=== PATIENT | female | born 1945 | race Asian ===

== ENCOUNTER 2016-12-18 11:16 | Inpatient (IN) | payer MEDICARE, MEDICAID ==
--- NOTE | 2016-12-18 12:11 | ED Physician Chart ---
ED Chief Complaint/HPI - Patient Information Date Seen:: 12/18/16 Time Seen:: 11:55 Chief Complaint:: SUICIDAL IDEATION. CONFUSION History of Present Illness:: THIS 71 YEAR OLD FEMALE WAS BROUGHT TO THE HOSPITAL BY EMS AND THE [employer] POLICE DUE TO CONFUSION AND SUICIDAL IDEATION. PT FOLLOWS SIMPLE COMMANDS ( IE. OPEN YOUR MOUTH, FOLLOW MY FLASHLIGHT) BUT IS ORIENTED ONLY TO HER NAME. SHE THOUGHT THAT THE YEAR IS 2002. WHEN SHE GOT HERE THE PATIENT WAS SPEAKING GIBERISH IN HER [place] LANGUAGE OF TAGALOG. SHE DENIES ANY FEVER OR CHILLS. SHE DENIES HEADACHE, CHEST PAIN OR ABDOMINAL PAIN. DENIES COUGH OR TROUBLE BREATHING. DENIES NAUSEA OR VOMITING. NO ABDOMINAL PAIN. HE PT HAS A HISTORY OF DIABETES AND CIRRHOSIS. ACCORDING TO THE PATIENTS SHE DRINKS ALCOHOL EXCESSIVELY. SHE WAS PLACED ON A 5150 BY [employer] FOR 'DANGER TO SELF.' Allergies:: Allergies Allergy/AdvReac Type Severity Reaction Status Date / Time No Known Allergies Allergy Verified 12/18/16 11:31 Vitals:: Vital Signs - 8 hr 12/18/16 11:31 Temp 96.7 F HR 101 RR 19 BP 164/80 O2 Sat % 98 ED Review of Systems - Review of Systems General/Constitutional: No fever, No chills, Edema Skin: No rash, No bruising Head: No headache Eyes: No loss of vision, No diplopia ENT: No earache, No nasal drainage, No sore throat Neck: No neck pain, No swelling, No stiffness, No mass noted Cardio Vascular: No chest pain, No palpitations, edema Pulmonary: No SOB, No cough, No wheezing GI: No nausea, No vomiting, No diarrhea, No pain G/U: No dysuria, No frequency, No hematuria Asparagus Buncher: No abnormal vaginal bleed Musculoskeletal: No bone or joint pain, No back pain, No muscle pain Psychiatric: Other (UN) Hematopoietic: No bruising Neurological: No syncope, No focal symptoms, No weakness, No paresthesia, No headache, Confusion, Other (PT STATES SHE HAS HAD A STROKE BUT CAN'T SAY WHEN) ED Past Medical History - Past Medical History Past Medical History: DM, Other (CIRRHOSIS) Social History: Non Smoker, Alcohol, 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 Head: Atraumatic Other Head comments:: NO PALPABLE OR VISIBLE HEAD INJURY. Eyes: Lids, conjuctiva normal, PERRL, EOMI Other Eyes comments:: SCLERA JAUNDICED. NO NYSTAGMUS. Skin: No rash, No ecchymosis, Well hydrated Other Skin comments:: ICTHEOSIS OF SKIN IN DISTAL LOWER EXTREMITIES. ENMT: External ears, nose nl, Oropharynx nl Other ENMT comments:: PT WITH MULTIPLE BROKEN AND DECAYING TEETH. Neck: Nontender, No JVD, No nuchal rigidity, No mass, No stridor Respiratory: Nl effort/Exclusion, Clear to Auscultation, No Wheeze/Rhonchi/Rales Cardio Vascular: RRR, No murmur, gallop, rubs, NL S1 S2 Other Cardio Vascular comments:: GOOD DISTAL PULSES ALL 4 EXTREMITIES. GI: No tenderness/rebounding/guarding, No organomegaly Other GI comments:: MODERATELY DISTENDED SECONDARY TO OBESITY. NORMAL BOWEL SOUNDS. UNABLE TO PALPATE LIVER OR SPLEEN. NO REBOUND OR GUARDING. NON-INCARCERATED UMBILICAL HERNIA. Other Extremities comments:: Patient has trace pretibial edema in both lower extremities. Normal strength in all 4 extremities. Sensation appears intact. ED Labs/Radiology/EKG Results - Lab Results Results: Laboratory Tests 12/18/16 11:27 POC Glucose 204 H EKG INTERPRETATION: Normal sinus rhythm at a rate of 91 with no ectopy. Normal WV interval. Normal QRS duration. Normal QT interval. Normal axis. Absent R waves in V1 suggestive of old anterior infarct. No ST segment elevation or depression. Nonspecific T-wave flattening in the lateral precordial leads. Impression: Abnormal EKG. Laboratory Tests 12/18/16 12/18/16 12/18/16 11:27 12:32 12:32 WBC 6.9 RBC 4.60 Hgb 13.6 Hct 39.6 L MCV 86.2 MCH 29.5 MCHC Differential 34.2 RDW 14.8 Plt Count 111 L MPV 10.6 Neutrophils % 67.6 Lymphocytes % 17.4 L Monocytes % 9.7 Eosinophils % 5.3 H Basophils % 0.0 Sodium 132 L Potassium 4.1 Chloride 99 Carbon Dioxide 24.0 Anion Gap 13.1 BUN 17 Creatinine 0.9 Est GFR ( Amer) TNP Est GFR (Non-Af Amer) TNP BUN/Creatinine Ratio 18.9 Glucose 240 H POC Glucose 204 H Calcium 9.7 Total Bilirubin 6.8 H AST 50 H ALT 27 Alkaline Phosphatase 85 Ammonia Total Protein 7.3 Albumin 3.4 L Globulin 3.9 Albumin/Globulin Ratio 0.9 L Amylase Lipase 12/18/16 12/18/16 12:32 12:32 WBC RBC Hgb Hct MCV MCH MCHC Differential RDW Plt Count MPV Neutrophils % Lymphocytes % Monocytes % Eosinophils % Basophils % Sodium Potassium Chloride Carbon Dioxide Anion Gap BUN Creatinine Est GFR ( Amer) Est GFR (Non-Af Amer) BUN/Creatinine Ratio Glucose POC Glucose Calcium Total Bilirubin AST ALT Alkaline Phosphatase Ammonia 107 H Total Protein Albumin Globulin Albumin/Globulin Ratio Amylase 33 Lipase 30 CBC shows no leukocytosis or anemia. Metabolic studies were positive for a mild hyponatremia with a sodium of 132. Other electrolytes were within normal parameters. Normal renal function. Both the amylase and lipase were within normal range. Patient has an elevated bilirubin and ammonia level of 107. There is abnormal liver function. Chest x-ray INTERPRETATION: Mild cardiomegaly. Prominent markings in both jeffery. No areas of pulmonary consolidation. No pneumothorax. No pleural effusion. IMPRESSION: NO ACUTE CARDIOPULMONARY FINDINGS. ED Assessment - Assessment General Assessment: CASE SUMMARY: 71-year-old female lives in a hotel with her . The called 911 because of confusion and saying that she wants to kill herself. He was put on a 5150 hold by [employer]) and brought to the emergency department. Upon arrival she was awake but speaking gibberish. There was no evidence of head trauma patient had abdominal distention which was most likely secondary to obesity. No ascites detected on examination. Patient has mild pretibial edema in both lower extremities. Laboratory studies showed a normal white count with no anemia. Renal function was normal. She had elevation of her ammonia level in the 110 range. She also had elevation of her bilirubin in the 7 range. I feel that the patient's confusion was most likely secondary to hepatic encephalopathy. The case was discussed with Dr. Lopez patient will be admitted to a medicine/surgical bed for further diagnostic evaluation and treatment. In the emergency department she received intravenous thiamine, folate and multivitamins. She became progressively more awake and alert during the ED course. The patient became extremely agitated as a cath UA was used to obtain a urine specimen. This was addressed with 0.5 mg of Ativan. Admitted in stable condition. MDM DDX FOR ALTERED MENTAL STATUS: NOT Hypoglycemia based on serum glucose in the 200 range. NOT Hyponatremia based on a serum of sodium of 132. NOT Ketoacidosis based on a serum Bicarb of 24. NOT Renal failure based on normal BUN and Creatinine levels. NOT intracranial bleed based on negative CT of the head. ED Septic Shock - . Is Septic Shock (SBP<90, OR Lactate>4 mmol\L) present?: No - <6hrs of presentation: Vital Signs: Vital Signs - 8 hr 12/18/16 11:31 Temp 96.7 F HR 101 RR 19 BP 164/80 O2 Sat % 98 ED Reassessment (Disposition) - Reassessment Reassessment Condition:: Improved - Diagnosis Diagnosis:: CIRRHOSIS with HEPATIC ENCEPHALOPATHY. MAJOR DEPRESSION with SUICIDAL IDEATION . - Patient Disposition Discharge/Transfer:: Acute Care w/in this hosp Accepting Physician:: DR. NETO KERR
[2016-12-18] MEDS ORDERED: Multivitamin Inj 10 ML, Thiamine HCL 100 MG, Magnesium Sulfate 2 GM, Folic Acid 1 MG in... IV ONE (12:20)
[2016-12-18] MEDS ORDERED: Sodium Chloride 0.9% 1,000 ML IV ONE (12:22)
[2016-12-18] MEDS ORDERED: Magnesium Sulfate 1 gm/2 mL 2mL Vial IV ONE (12:27)
[2016-12-18] MEDS ORDERED: Thiamine 100 mg/mL 2mL Vial ONE (12:27)
[2016-12-18] MEDS ORDERED: Multivitamin Inj 10 mL Vial IV ONE (12:28)
[2016-12-18 12:41] LABS: % EOSINOPHILS 5.3 % (0.0-5.0); % LYMPHOCYTES 17.4 % (20.0-50.0); % MONOCYTES 9.7 % (2.0-10.0); % NEUTROPHILS 67.6 % (40.0-80.0); HEMATOCRIT 39.6 % (41.0-60); HEMOGLOBIN 13.6 gm/dL (12-16); MEAN CELL VOLUME 86.2 fl (81-100); MEAN CORPUSCULAR HEMOGLOBIN 29.5 pg (27.0-31.0); MEAN CORPUSCULAR HGB CONC 34.2 pg (28.0-36.0); MEAN PLATELET VOLUME 10.6 fl; NEUTROPHILE ABSOLUTE 4.6 Th/cmm (1.8-8.0); PLATELET COUNT 111 Th/cmm (150-400); RED CELL DISTRIBUTION WIDTH 14.8 % (11.5-20.0); WHITE BLOOD COUNT 6.9 Th/cmm (4.8-10.8)
[2016-12-18 12:57] LABS: ALB/GLOB RATIO 0.9 (1.0-1.8); ALKALINE PHOSPHATASE 85 U/L (34-104); ANION GAP 13.1 (7.0-16.0); BILIRUBIN,TOTAL 6.8 mg/dL (0.3-1.0); BUN - UREA NITROGEN 17 mg/dL (7-25); BUN/CREATININE RATIO 18.9; CALCIUM SERUM 9.7 mg/dL (8.6-10.3); CHLORIDE 99 mEq/L (98-107); CREATININE - SERUM 0.9 mg/dL (0.6-1.2); GLUCOSE 240 mg/dL (70-105); POTASSIUM SERUM 4.1 mEq/L (3.5-5.1); SGOT 50 U/L (13-39); SGPT/ALT 27 U/L (7-52); SODIUM SERUM 132 mEq/L (136-145)
[2016-12-18 12:58] LABS: AMYLASE SERUM 33 U/L (29-103); LIPASE 30 U/L (11-82)
[2016-12-18] MEDS ORDERED: guaiFENesin 200 MG/10 ML UDC PO PRN (14:44)
[2016-12-18] MEDS ORDERED: D5-0.45NS 1,000 ML IV SCH (14:45)
[2016-12-18 15:12] LABS: URINE COLOR DARK ORANGE
[2016-12-18 15:13] LABS: URINE BILIRUBIN SMALL (NEGATIVE); URINE BLOOD TRACE (NEGATIVE); URINE GLUCOSE (UA) NEGATIVE (NEGATIVE); URINE KETONE TRACE mg/dL (NEGATIVE); URINE PH 5.5 (4.6 - 8.0); URINE PROTEIN 100 mg/dL (NEGATIVE)
[2016-12-18 15:14] LABS: URINE BACTERIA 1+ /hpf (NONE SEEN); URINE EPITHELIAL CELLS OCCASIONAL /lpf (FEW); URINE RBC 0-2 /hpf (0-5)
[2016-12-18 15:15] LABS: URINE AMORPHOUS SEDIMENT MANY URATES (NONE SEEN); URINE FINE GRANULAR CAST 0-2 /lpf (NONE SEEN)
[2016-12-18 15:27] LABS: AMPHETAMINE URINE NEGATIVE (NEGATIVE); BARBITURATES URINE NEGATIVE (NEGATIVE); METHADONE URINE NEGATIVE (NEGATIVE)
[2016-12-18] MEDS ORDERED: Albuterol Nebulizer 2.5mg/3mL HHN ONE (15:31)
[2016-12-18] MEDS ORDERED: Ipratropium Neb 0.5 mg/2.5 mL UD HHN ONE (15:31)
--- NOTE | 2016-12-18 16:19 | Internal Medicine Prog Note ---
Internal Medicine Subjective - Subjective Service Date: 12/18/16 ([id number] hn [id number]) Internal Medicine Objective - Results Result Diagrams: 12/18/16 12:32 12/18/16 12:32 Recent Labs: Laboratory Last Values WBC 6.9 Th/cmm (4.8-10.8) 12/18/16 12:32 RBC 4.60 Mil/cmm (3.80-5.20) 12/18/16 12:32 Hgb 13.6 gm/dL (12-16) 12/18/16 12:32 Hct 39.6 % (41.0-60) L 12/18/16 12:32 MCV 86.2 fl (81-100) 12/18/16 12:32 MCH 29.5 pg (27.0-31.0) 12/18/16 12:32 MCHC Differential 34.2 pg (28.0-36.0) 12/18/16 12:32 RDW 14.8 % (11.5-20.0) 12/18/16 12:32 Plt Count 111 Th/cmm (150-400) L 12/18/16 12:32 MPV 10.6 fl 12/18/16 12:32 Neutrophils % 67.6 % (40.0-80.0) 12/18/16 12:32 Lymphocytes % 17.4 % (20.0-50.0) L 12/18/16 12:32 Monocytes % 9.7 % (2.0-10.0) 12/18/16 12:32 Eosinophils % 5.3 % (0.0-5.0) H 12/18/16 12:32 Basophils % 0.0 % (0.0-2.0) 12/18/16 12:32 Sodium 132 mEq/L (136-145) L 12/18/16 12:32 Potassium 4.1 mEq/L (3.5-5.1) 12/18/16 12:32 Chloride 99 mEq/L (98-107) 12/18/16 12:32 Carbon Dioxide 24.0 mEq/L (21.0-31.0) 12/18/16 12:32 Anion Gap 13.1 (7.0-16.0) 12/18/16 12:32 BUN 17 mg/dL (7-25) 12/18/16 12:32 Creatinine 0.9 mg/dL (0.6-1.2) 12/18/16 12:32 Est GFR ( Amer) TNP 12/18/16 12:32 Est GFR (Non-Af Amer) TNP 12/18/16 12:32 BUN/Creatinine Ratio 18.9 12/18/16 12:32 Glucose 240 mg/dL (70-105) H 12/18/16 12:32 POC Glucose 204 MG/DL (70 - 105) H 12/18/16 11:27 Hemoglobin A1c % 7.5 % (4.0-6.0) H 12/18/16 13:59 Calcium 9.7 mg/dL (8.6-10.3) 12/18/16 12:32 Total Bilirubin 6.8 mg/dL (0.3-1.0) H 12/18/16 12:32 AST 50 U/L (13-39) H 12/18/16 12:32 ALT 27 U/L (7-52) 12/18/16 12:32 Alkaline Phosphatase 85 U/L (34-104) 12/18/16 12:32 Ammonia 107 umol/L (16-53) H 12/18/16 12:32 Total Protein 7.3 gm/dL (6.0-8.3) 12/18/16 12:32 Albumin 3.4 gm/dL (3.7-5.3) L 12/18/16 12:32 Globulin 3.9 gm/dL 12/18/16 12:32 Albumin/Globulin Ratio 0.9 (1.0-1.8) L 12/18/16 12:32 Amylase 33 U/L (29-103) 12/18/16 12:32 Lipase 30 U/L (11-82) 12/18/16 12:32 Urine Source RANDOM 12/18/16 14:50 Urine Color DARK ORANGE 12/18/16 14:50 Urine Clarity SLIGHTLY HAZY (CLEAR) 12/18/16 14:50 Urine pH 5.5 (4.6 - 8.0) 12/18/16 14:50 Ur Specific [place] >= 1.030 (1.005-1.030) 12/18/16 14:50 Urine Protein 100 mg/dL (NEGATIVE) H 12/18/16 14:50 Urine Glucose (UA) NEGATIVE mg/dL (NEGATIVE) 12/18/16 14:50 Urine Ketones TRACE mg/dL (NEGATIVE) 12/18/16 14:50 Urine Blood TRACE (NEGATIVE) 12/18/16 14:50 Urine Nitrate NEGATIVE (NEGATIVE) 12/18/16 14:50 Urine Bilirubin SMALL (NEGATIVE) H 12/18/16 14:50 Urine Urobilinogen 1.0 E.U./dL (0.2 - 1.0) 12/18/16 14:50 Ur Leukocyte Esterase NEGATIVE (NEGATIVE) 12/18/16 14:50 Urine RBC 0-2 /hpf (0-5) 12/18/16 14:50 Urine WBC 2-5 /hpf (0-5) 12/18/16 14:50 Ur Epithelial Cells OCCASIONAL /lpf (FEW) 12/18/16 14:50 Amorphous Sediment MANY URATES (NONE SEEN) 12/18/16 14:50 Urine Bacteria 1+ /hpf (NONE SEEN) H 12/18/16 14:50 Fine Granular Casts 0-2 /lpf (NONE SEEN) H 12/18/16 14:50 Urine Opiates Screen NEGATIVE (NEGATIVE) 12/18/16 14:50 Urine Methadone Screen NEGATIVE (NEGATIVE) 12/18/16 14:50 Ur Barbiturates Screen NEGATIVE (NEGATIVE) 12/18/16 14:50 Ur Tricyclics Screen NEGATIVE (NEGATIVE) 12/18/16 14:50 Ur Phencyclidine Scrn NEGATIVE (NEGATIVE) 12/18/16 14:50 Amphetamines Screen NEGATIVE (NEGATIVE) 12/18/16 14:50 U Methamphetamines Scrn NEGATIVE (NEGATIVE) 12/18/16 14:50 U Benzodiazepines Scrn NEGATIVE (NEGATIVE) 12/18/16 14:50 U Cocaine Metab Screen NEGATIVE (NEGATIVE) 12/18/16 14:50 U Cannabinoids Screen NEGATIVE (NEGATIVE) 12/18/16 14:50 - Physical Exam Vitals and I&O: Vital Signs Temp 97.2 F 12/18/16 15:03 Pulse 103 12/18/16 16:01 Resp 16 12/18/16 16:01 BP 168/77 12/18/16 15:03 Pulse Ox 99 12/18/16 16:01 Intake & Output 12/17/16 12/18/16 12/18/16 18:59 06:59 18:59 Output Total 400 Balance -400 Weight (lbs) 300 lb Output: Urine 400 Active Medications: Current Medications Acetaminophen (Tylenol) 650 mg PO Q4H PRN PRN Reason: Pain Or Fever above 101 Stop: 02/16/17 14:43 Albuterol Sulfate (Albuterol 2.5mg/3ml Neb Ud) 2.5 mg HHN QIDRT [facility] Stop: 02/16/17 14:59 Guaifenesin (Robitussin) 200 mg PO Q4HR PRN PRN Reason: Cough or Congestion Stop: 02/16/17 14:43 Multivitamins/Minerals 10 ml/Thiamine HCl 100 mg/ Magnesium Sulfate 2 gm/ Folic Acid 1 mg / Sodium Chloride 1,015.2 mls @ 0 mls/hr IV ONCE ONE PRN Reason: Wide Open Stop: 12/18/16 12:21 Last Admin: 12/18/16 12:48 Dose: 999 mls/hr Sodium Chloride (Nacl 0.9%) 1,000 mls @ 0 mls/hr IV .Q0M ONE PRN Reason: Wide Open Stop: 12/18/16 12:23 Dextrose/Sodium Chloride (D5-0.45ns) 1,000 mls @ 80 mls/hr IV .[id number] [facility] Stop: 02/16/17 14:44 Ipratropium [place] (Atrovent Neb 0.5mg/2.5ml) 0.5 mg IH QIDRT [facility] Stop: 02/16/17 14:59 Lactulose (Cephulac) 30 gm PO TID [facility] Stop: 02/16/17 20:59 Lorazepam (Ativan) 0.5 mg IV NOW STA PRN Reason: Protocol Stop: 12/18/16 14:35 Last Admin: 12/18/16 14:36 Dose: 0.5 mg Lorazepam (Ativan) 1 mg IV Q4H PRN; Protocol PRN Reason: Seizure Stop: 02/16/17 14:43 Ondansetron HCl (Zofran) 4 mg IV Q8H PRN PRN Reason: Nausea / Vomiting Stop: 02/16/17 14:43 Pantoprazole Sodium (Protonix) 40 mg PO BID [facility] Stop: 02/16/17 16:59 Internal Medicine Assmt/Plan - Assessment Assessment: ALOC Hepatic Encephalopathy DM-2 HYPONATREMIA ACUTE UTI MILD PROTEIN CALORIE MALNUTRITION 5150 STATUS HX CIRROHOSIS ALCOHOL ABUSE
[2016-12-18] MEDS: Levofloxacin 500mg/100mL 500 MG/100 ML BAG IV SCH (16:45)
[2016-12-18] MEDS: Pantoprazole 40 mg EC Tab PO SCH (16:46)
[2016-12-18] MEDS: Albuterol Nebulizer 2.5mg/3mL HHN SCH (19:16)
[2016-12-18] MEDS: Ipratropium Neb 0.5 mg/2.5 mL UD IH SCH (19:28)
--- NOTE | 2016-12-18 19:35 | History & Physical ---
ADMIT DATE: 12/18/2016 CHIEF COMPLAINT: Suicidal ideation and increasing confusion. HISTORY OF PRESENT ILLNESS: This is a 71-year-old female who was found by [place] Police at [facility] for having increasing confusion and suicidal ideation. The patient was also noted to have increase of the confusion. The patient was apparently speaking gibberish and for this reason the patient was brought to the ER and the patient is now admitted to the Med/Surg unit for further evaluation. The patient's ammonia level was noted to be 107. PAST MEDICAL HISTORY: Diabetes, liver cirrhosis. SOCIAL HISTORY: The patient is a chronic alcoholic. The patient is . No illicit drug usage. SURGICAL HISTORY: None per patient. FAMILY HISTORY: Noncontributory. REVIEW OF SYSTEMS: Unable to obtain. The patient refuses to answer. The patient is very agitated. PHYSICAL EXAMINATION: GENERAL: The patient is awake, confused, obese, in no apparent distress. VITAL SIGNS: Temperature 97.0, heart rate 90, blood pressure 168/77, respirations 16, O2 97%. HEENT: Head; normocephalic, atraumatic. NECK: Supple. No mass. LUNGS: Clear bilaterally. HEART: Regular rhythm. ABDOMEN: Soft, nontender. LABORATORY DATA: WBC 6.9, H and H 13.6 and 39.6, platelet of 111. Sodium 132, potassium 4.1, chloride 99, BUN 17, creatinine 0.9. Ammonia level of 107. Glucose of 204. The patient had a urinalysis done, bacteria +1 and urine protein was over 100. ASSESSMENT: Altered level of consciousness, hepatic encephalopathy, hyponatremia, mild protein-calorie malnutrition, acute urinary tract infection, diabetes and cirrhosis. PLAN: The patient will be admitted to the Med/Surg unit. We will monitor the patient's ammonia levels. The patient will be kept on IV fluids for hydration. We will obtain a chest x-ray and CT of the head. We will have GI consultation, also Psychiatry, 1:1 sitter for safety. We will continue to follow this patient. JOB# [id number]
[2016-12-18] MEDS: Lactulose 10 Gm/15 mL 30mL UDC PO SCH (20:42)
[2016-12-19] MEDS: Albuterol Nebulizer 2.5mg/3mL HHN SCH ×4 (07:21→19:06)
[2016-12-19] MEDS: Ipratropium Neb 0.5 mg/2.5 mL UD IH SCH ×4 (07:21→19:06)
--- NOTE | 2016-12-19 07:45 | Diagnostic Imaging Report ---
CHEST X-RAY: AP view INDICATION: Altered mental status COMPARISON: None FINDINGS: Mild chronic lung changes are noted. No focal consolidation or effusions. There is faint mid left lung density measuring 1 cm.Mild cardiomegaly is noted with atherosclerosis.. Degenerative changes of the spine are noted. IMPRESSION: Mild chronic lung changes with no focal consolidation identified. Faint left midlung density which may be due to superimposition of bronchovascular structures, however, a small pulmonary nodule cannot be excluded. Recommend further assessment CT of the chest. Mild cardiomegaly and atherosclerosis.
--- NOTE | 2016-12-19 07:50 | Diagnostic Imaging Report ---
CT scan of the brain without intravenous contrast HISTORY: Stroke, CVA Total DLP equals 639 CTDI equals 36.5 Axial sections were obtained from the base of the skull to the vertex. There is prominence/enlargement of the ventricular system size. Associated enlargement of cerebral sulci and subarachnoid cisterns. Findings are consistent with changes of generalized cerebral atrophy. No acute parenchymal abnormalities. No acute cerebral hemorrhage. Hypodensity is seen within the supratentorial white matter regions without mass effect. The findings may be associated with chronic small vessel ischemic disease. No extra-axial masses or abnormal fluid collections. Severe dense atherosclerotic calcification seen in the region of the vertebral and basilar arteries at the base of the skull. IMPRESSION: 1. No acute abnormalities 2. Cerebral atrophy 3. Supratentorial white matter changes that may reflect chronic small vessel ischemic disease 4. Severe atherosclerotic vascular changes
[2016-12-19] MEDS: Lactulose 10 Gm/15 mL 30mL UDC PO SCH ×3 (08:35→22:14)
[2016-12-19] MEDS: Pantoprazole 40 mg EC Tab PO SCH ×2 (08:36→17:37)
[2016-12-19 10:52] VITALS: BP 139/79
--- NOTE | 2016-12-19 10:54 | Internal Medicine Prog Note ---
Internal Medicine Subjective - Subjective Service Date: 12/19/16 Patient seen and examined:: with staff Patient is:: awake, agitated, confused Internal Medicine Objective - Results Result Diagrams: 12/18/16 12:32 12/18/16 12:32 Recent Labs: Laboratory Last Values WBC 6.9 Th/cmm (4.8-10.8) 12/18/16 12:32 RBC 4.60 Mil/cmm (3.80-5.20) 12/18/16 12:32 Hgb 13.6 gm/dL (12-16) 12/18/16 12:32 Hct 39.6 % (41.0-60) L 12/18/16 12:32 MCV 86.2 fl (81-100) 12/18/16 12:32 MCH 29.5 pg (27.0-31.0) 12/18/16 12:32 MCHC Differential 34.2 pg (28.0-36.0) 12/18/16 12:32 RDW 14.8 % (11.5-20.0) 12/18/16 12:32 Plt Count 111 Th/cmm (150-400) L 12/18/16 12:32 MPV 10.6 fl 12/18/16 12:32 Neutrophils % 67.6 % (40.0-80.0) 12/18/16 12:32 Lymphocytes % 17.4 % (20.0-50.0) L 12/18/16 12:32 Monocytes % 9.7 % (2.0-10.0) 12/18/16 12:32 Eosinophils % 5.3 % (0.0-5.0) H 12/18/16 12:32 Basophils % 0.0 % (0.0-2.0) 12/18/16 12:32 Sodium 132 mEq/L (136-145) L 12/18/16 12:32 Potassium 4.1 mEq/L (3.5-5.1) 12/18/16 12:32 Chloride 99 mEq/L (98-107) 12/18/16 12:32 Carbon Dioxide 24.0 mEq/L (21.0-31.0) 12/18/16 12:32 Anion Gap 13.1 (7.0-16.0) 12/18/16 12:32 BUN 17 mg/dL (7-25) 12/18/16 12:32 Creatinine 0.9 mg/dL (0.6-1.2) 12/18/16 12:32 Est GFR ( Amer) TNP 12/18/16 12:32 Est GFR (Non-Af Amer) TNP 12/18/16 12:32 BUN/Creatinine Ratio 18.9 12/18/16 12:32 Glucose 240 mg/dL (70-105) H 12/18/16 12:32 POC Glucose 258 MG/DL (70 - 105) H 12/18/16 20:54 Hemoglobin A1c % 7.5 % (4.0-6.0) H 12/18/16 13:59 Calcium 9.7 mg/dL (8.6-10.3) 12/18/16 12:32 Total Bilirubin 6.8 mg/dL (0.3-1.0) H 12/18/16 12:32 AST 50 U/L (13-39) H 12/18/16 12:32 ALT 27 U/L (7-52) 12/18/16 12:32 Alkaline Phosphatase 85 U/L (34-104) 12/18/16 12:32 Ammonia 107 umol/L (16-53) H 12/18/16 12:32 Total Protein 7.3 gm/dL (6.0-8.3) 12/18/16 12:32 Albumin 3.4 gm/dL (3.7-5.3) L 12/18/16 12:32 Globulin 3.9 gm/dL 12/18/16 12:32 Albumin/Globulin Ratio 0.9 (1.0-1.8) L 12/18/16 12:32 Amylase 33 U/L (29-103) 12/18/16 12:32 Lipase 30 U/L (11-82) 12/18/16 12:32 Urine Source RANDOM 12/18/16 14:50 Urine Color DARK ORANGE 12/18/16 14:50 Urine Clarity SLIGHTLY HAZY (CLEAR) 12/18/16 14:50 Urine pH 5.5 (4.6 - 8.0) 12/18/16 14:50 Ur Specific [place] >= 1.030 (1.005-1.030) 12/18/16 14:50 Urine Protein 100 mg/dL (NEGATIVE) H 12/18/16 14:50 Urine Glucose (UA) NEGATIVE mg/dL (NEGATIVE) 12/18/16 14:50 Urine Ketones TRACE mg/dL (NEGATIVE) 12/18/16 14:50 Urine Blood TRACE (NEGATIVE) 12/18/16 14:50 Urine Nitrate NEGATIVE (NEGATIVE) 12/18/16 14:50 Urine Bilirubin SMALL (NEGATIVE) H 12/18/16 14:50 Urine Urobilinogen 1.0 E.U./dL (0.2 - 1.0) 12/18/16 14:50 Ur Leukocyte Esterase NEGATIVE (NEGATIVE) 12/18/16 14:50 Urine RBC 0-2 /hpf (0-5) 12/18/16 14:50 Urine WBC 2-5 /hpf (0-5) 12/18/16 14:50 Ur Epithelial Cells OCCASIONAL /lpf (FEW) 12/18/16 14:50 Amorphous Sediment MANY URATES (NONE SEEN) 12/18/16 14:50 Urine Bacteria 1+ /hpf (NONE SEEN) H 12/18/16 14:50 Fine Granular Casts 0-2 /lpf (NONE SEEN) H 12/18/16 14:50 Urine Opiates Screen NEGATIVE (NEGATIVE) 12/18/16 14:50 Urine Methadone Screen NEGATIVE (NEGATIVE) 12/18/16 14:50 Ur Barbiturates Screen NEGATIVE (NEGATIVE) 12/18/16 14:50 Ur Tricyclics Screen NEGATIVE (NEGATIVE) 12/18/16 14:50 Ur Phencyclidine Scrn NEGATIVE (NEGATIVE) 12/18/16 14:50 Amphetamines Screen NEGATIVE (NEGATIVE) 12/18/16 14:50 U Methamphetamines Scrn NEGATIVE (NEGATIVE) 12/18/16 14:50 U Benzodiazepines Scrn NEGATIVE (NEGATIVE) 12/18/16 14:50 U Cocaine Metab Screen NEGATIVE (NEGATIVE) 12/18/16 14:50 U Cannabinoids Screen NEGATIVE (NEGATIVE) 12/18/16 14:50 - Physical Exam Vitals and I&O: Vital Signs Temp 98.6 F 12/19/16 04:00 Pulse 89 12/19/16 07:22 Resp 18 12/19/16 08:00 BP 139/79 12/19/16 10:52 Pulse Ox 98 12/19/16 07:22 Intake & Output 12/18/16 12/19/16 12/19/16 18:59 06:59 18:59 Intake Total 120 250 Output Total 400 Balance -280 250 Weight (lbs) 300 lb 300 lb Intake: Oral 120 250 Output: Urine 400 Other: # Voids 1 # Bowel Movements 0 Active Medications: Current Medications Acetaminophen (Tylenol) 650 mg PO Q4H PRN PRN Reason: Pain Or Fever above 101 Stop: 02/16/17 14:43 Albuterol Sulfate (Albuterol 2.5mg/3ml Neb Ud) 2.5 mg HHN QIDRT [facility] Stop: 02/16/17 14:59 Last Admin: 12/19/16 07:21 Dose: 2.5 mg Guaifenesin (Robitussin) 200 mg PO Q4HR PRN PRN Reason: Cough or Congestion Stop: 02/16/17 14:43 Dextrose/Sodium Chloride (D5-0.45ns) 1,000 mls @ 80 mls/hr IV .[id number] [facility] Stop: 02/16/17 14:44 Last Admin: 12/18/16 16:45 Dose: 80 mls/hr Levofloxacin (Levaquin Pb) 500 mg in 100 mls @ 100 mls/hr IV Q24HR [facility] Stop: 02/16/17 16:29 Last Admin: 12/18/16 16:45 Dose: 100 mls/hr Ipratropium [place] (Atrovent Neb 0.5mg/2.5ml) 0.5 mg IH QIDRT [facility] Stop: 02/16/17 14:59 Last Admin: 12/19/16 07:21 Dose: 0.5 mg Lactulose (Cephulac) 30 gm PO TID [facility] Stop: 02/16/17 20:59 Last Admin: 12/19/16 08:35 Dose: 30 gm Lorazepam (Ativan) 1 mg IV Q4H PRN; Protocol PRN Reason: Seizure Stop: 02/16/17 14:43 Last Admin: 12/19/16 01:18 Dose: 1 mg Ondansetron HCl (Zofran) 4 mg IV Q8H PRN PRN Reason: Nausea / Vomiting Stop: 02/16/17 14:43 Pantoprazole Sodium (Protonix) 40 mg PO BID [facility] Stop: 02/16/17 16:59 Last Admin: 11/13/17 08:36 Dose: 40 mg Internal Medicine Assmt/Plan - Assessment Assessment: ALOC Hepatic Encephalopathy DM-2 HYPONATREMIA ACUTE UTI MILD PROTEIN CALORIE MALNUTRITION 5150 STATUS HX CIRROHOSIS ALCOHOL ABUSE - Plan Plan: monitor ammonia level ivf for hydration am labs fall precautions monitor electrolyte levels continue current plan of care
[2016-12-19 11:21] LABS: MEAN PLATELET VOLUME 9.6 fl; RED BLOOD COUNT 3.93 Mil/cmm (3.80-5.20)
[2016-12-19 11:26] LABS: % BASOPHILS 0.9 % (0.0-2.0); % EOSINOPHILS 3.5 % (0.0-5.0); % LYMPHOCYTES 19.3 % (20.0-50.0); % MONOCYTES 10.9 % (2.0-10.0); % NEUTROPHILS 65.4 % (40.0-80.0); HEMOGLOBIN 11.7 gm/dL (12-16); MEAN CELL VOLUME 86.7 fl (81-100); MEAN CORPUSCULAR HEMOGLOBIN 29.8 pg (27.0-31.0); MEAN CORPUSCULAR HGB CONC 34.4 pg (28.0-36.0); NEUTROPHILE ABSOLUTE 3.3 Th/cmm (1.8-8.0); RED CELL DISTRIBUTION WIDTH 15.2 % (11.5-20.0)
[2016-12-19 11:28] LABS: WHITE BLOOD COUNT 4.9 Th/cmm (4.8-10.8)
[2016-12-19 11:29] LABS: PLATELET COUNT 87 Th/cmm (150-400)
[2016-12-19 11:50] LABS: BUN - UREA NITROGEN 14 mg/dL (7-25); CALCIUM SERUM 8.8 mg/dL (8.6-10.3); CARBON DIOXIDE 21.9 mEq/L (21.0-31.0); CHLORIDE 101 mEq/L (98-107); POTASSIUM SERUM 3.9 mEq/L (3.5-5.1); SODIUM SERUM 129 mEq/L (136-145)
[2016-12-19 12:04] LABS: GLUCOSE 328 mg/dL (70-105)
[2016-12-19] MEDS ORDERED: Sodium Chloride 0.9% 1,000 ML IV SCH (13:15)
[2016-12-19] MEDS ORDERED: INSULIN ASPART, RECOMBINANT 100 UNITS/ML SUBQ SCH (16:30)
[2016-12-19] MEDS: Levofloxacin 500mg/100mL 500 MG/100 ML BAG IV SCH (16:55)
[2016-12-19] MEDS: INSULIN ASPART, RECOMBINANT 100 UNITS/ML SUBQ SCH ×2 (18:10→22:17)
[2016-12-20] MEDS: INSULIN ASPART, RECOMBINANT 100 UNITS/ML SUBQ SCH ×4 (06:48→22:21)
[2016-12-20] MEDS: Albuterol Nebulizer 2.5mg/3mL HHN SCH ×4 (07:19→19:14)
[2016-12-20] MEDS: Ipratropium Neb 0.5 mg/2.5 mL UD IH SCH ×4 (07:19→19:14)
[2016-12-20 08:44] LABS: % BASOPHILS 0.9 % (0.0-2.0); % EOSINOPHILS 5.8 % (0.0-5.0); % MONOCYTES 9.3 % (2.0-10.0); HEMOGLOBIN 11.9 gm/dL (12-16); MEAN CORPUSCULAR HEMOGLOBIN 30.8 pg (27.0-31.0); MEAN CORPUSCULAR HGB CONC 35.1 pg (28.0-36.0); MEAN PLATELET VOLUME 9.7 fl; NEUTROPHILE ABSOLUTE 2.9 Th/cmm (1.8-8.0); PLATELET COUNT 74 Th/cmm (150-400); RED BLOOD COUNT 3.87 Mil/cmm (3.80-5.20); RED CELL DISTRIBUTION WIDTH 15.1 % (11.5-20.0); WHITE BLOOD COUNT 4.4 Th/cmm (4.8-10.8)
[2016-12-20] MEDS: Calcium Carb/Vit D 500 mg/200 U Tab PO SCH (08:58)
[2016-12-20] MEDS: Pantoprazole 40 mg EC Tab PO SCH ×3 (08:59→16:27)
[2016-12-20] MEDS: Lactulose 10 Gm/15 mL 30mL UDC PO SCH ×3 (08:59→23:37)
[2016-12-20] MEDS: Insulin Detemir 100 units/mL 10mL Vial SUBQ SCH (08:59)
[2016-12-20] MEDS ORDERED: Insulin Detemir 100 units/mL 10mL Vial SUBQ SCH (09:00)
[2016-12-20 09:01] LABS: INR 1.25 (0.5-1.4); PROTHROMBIN TIME (TEST) 13.1 SECONDS (9.5-11.5)
[2016-12-20 09:03] LABS: ANION GAP 8.5 (7.0-16.0); BUN - UREA NITROGEN 10 mg/dL (7-25); BUN/CREATININE RATIO 12.5; CALCIUM SERUM 8.7 mg/dL (8.6-10.3); CARBON DIOXIDE 23.3 mEq/L (21.0-31.0); CHLORIDE 101 mEq/L (98-107); CREATININE - SERUM 0.8 mg/dL (0.6-1.2); POTASSIUM SERUM 3.8 mEq/L (3.5-5.1); SODIUM SERUM 129 mEq/L (136-145)
[2016-12-20 09:05] LABS: GLUCOSE 261 mg/dL (70-105)
--- NOTE | 2016-12-20 12:15 | Internal Medicine Prog Note ---
Internal Medicine Subjective - Subjective Service Date: 12/20/16 Patient seen and examined:: with staff Patient is:: awake, confused Per staff patient has:: tolerating meds, other (refused vital signs) Internal Medicine Objective - Results Result Diagrams: 12/20/16 08:35 12/20/16 08:35 Recent Labs: Laboratory Last Values WBC 4.4 Th/cmm (4.8-10.8) L 12/20/16 08:35 RBC 3.87 Mil/cmm (3.80-5.20) 12/20/16 08:35 Hgb 11.9 gm/dL (12-16) L 12/20/16 08:35 Hct 34.0 % (41.0-60) L 12/20/16 08:35 MCV 88.0 fl (81-100) 12/20/16 08:35 MCH 30.8 pg (27.0-31.0) 12/20/16 08:35 MCHC Differential 35.1 pg (28.0-36.0) 12/20/16 08:35 RDW 15.1 % (11.5-20.0) 12/20/16 08:35 Plt Count 74 Th/cmm (150-400) L 12/20/16 08:35 MPV 9.7 fl 12/20/16 08:35 Neutrophils % 66.0 % (40.0-80.0) 12/20/16 08:35 Lymphocytes % 18.0 % (20.0-50.0) L 12/20/16 08:35 Monocytes % 9.3 % (2.0-10.0) 12/20/16 08:35 Eosinophils % 5.8 % (0.0-5.0) H 12/20/16 08:35 Basophils % 0.9 % (0.0-2.0) 12/20/16 08:35 PT 13.1 SECONDS (9.5-11.5) H 12/20/16 08:35 INR 1.25 (0.5-1.4) 12/20/16 08:35 PTT (Actin FS) 30.1 SECONDS (26.0-38.0) 12/20/16 08:35 Sodium 129 mEq/L (136-145) L 12/20/16 08:35 Potassium 3.8 mEq/L (3.5-5.1) 12/20/16 08:35 Chloride 101 mEq/L (98-107) 12/20/16 08:35 Carbon Dioxide 23.3 mEq/L (21.0-31.0) 12/20/16 08:35 Anion Gap 8.5 (7.0-16.0) 12/20/16 08:35 BUN 10 mg/dL (7-25) 12/20/16 08:35 Creatinine 0.8 mg/dL (0.6-1.2) 12/20/16 08:35 Est GFR ( Amer) TNP 12/20/16 08:35 Est GFR (Non-Af Amer) TNP 12/20/16 08:35 BUN/Creatinine Ratio 12.5 12/20/16 08:35 Glucose 261 mg/dL (70-105) H D 12/20/16 08:35 POC Glucose 238 MG/DL (70 - 105) H 12/20/16 11:01 Hemoglobin A1c % 7.5 % (4.0-6.0) H 12/18/16 13:59 Calcium 8.7 mg/dL (8.6-10.3) 12/20/16 08:35 Total Bilirubin 6.8 mg/dL (0.3-1.0) H 12/18/16 12:32 AST 50 U/L (13-39) H 12/18/16 12:32 ALT 27 U/L (7-52) 12/18/16 12:32 Alkaline Phosphatase 85 U/L (34-104) 12/18/16 12:32 Ammonia 81 umol/L (16-53) H 12/20/16 08:35 Total Protein 7.3 gm/dL (6.0-8.3) 12/18/16 12:32 Albumin 3.4 gm/dL (3.7-5.3) L 12/18/16 12:32 Globulin 3.9 gm/dL 12/18/16 12:32 Albumin/Globulin Ratio 0.9 (1.0-1.8) L 12/18/16 12:32 Amylase 33 U/L (29-103) 12/18/16 12:32 Lipase 30 U/L (11-82) 12/18/16 12:32 Urine Source RANDOM 12/18/16 14:50 Urine Color DARK ORANGE 12/18/16 14:50 Urine Clarity SLIGHTLY HAZY (CLEAR) 12/18/16 14:50 Urine pH 5.5 (4.6 - 8.0) 12/18/16 14:50 Ur Specific [place] >= 1.030 (1.005-1.030) 12/18/16 14:50 Urine Protein 100 mg/dL (NEGATIVE) H 12/18/16 14:50 Urine Glucose (UA) NEGATIVE mg/dL (NEGATIVE) 12/18/16 14:50 Urine Ketones TRACE mg/dL (NEGATIVE) 12/18/16 14:50 Urine Blood TRACE (NEGATIVE) 12/18/16 14:50 Urine Nitrate NEGATIVE (NEGATIVE) 12/18/16 14:50 Urine Bilirubin SMALL (NEGATIVE) H 12/18/16 14:50 Urine Urobilinogen 1.0 E.U./dL (0.2 - 1.0) 12/18/16 14:50 Ur Leukocyte Esterase NEGATIVE (NEGATIVE) 12/18/16 14:50 Urine RBC 0-2 /hpf (0-5) 12/18/16 14:50 Urine WBC 2-5 /hpf (0-5) 12/18/16 14:50 Ur Epithelial Cells OCCASIONAL /lpf (FEW) 12/18/16 14:50 Amorphous Sediment MANY URATES (NONE SEEN) 12/18/16 14:50 Urine Bacteria 1+ /hpf (NONE SEEN) H 12/18/16 14:50 Fine Granular Casts 0-2 /lpf (NONE SEEN) H 12/18/16 14:50 Urine Opiates Screen NEGATIVE (NEGATIVE) 12/18/16 14:50 Urine Methadone Screen NEGATIVE (NEGATIVE) 12/18/16 14:50 Ur Barbiturates Screen NEGATIVE (NEGATIVE) 12/18/16 14:50 Ur Tricyclics Screen NEGATIVE (NEGATIVE) 12/18/16 14:50 Ur Phencyclidine Scrn NEGATIVE (NEGATIVE) 12/18/16 14:50 Amphetamines Screen NEGATIVE (NEGATIVE) 12/18/16 14:50 U Methamphetamines Scrn NEGATIVE (NEGATIVE) 12/18/16 14:50 U Benzodiazepines Scrn NEGATIVE (NEGATIVE) 12/18/16 14:50 U Cocaine Metab Screen NEGATIVE (NEGATIVE) 12/18/16 14:50 U Cannabinoids Screen NEGATIVE (NEGATIVE) 12/18/16 14:50 - Physical Exam Vitals and I&O: Vital Signs Temp 98.4 F 12/20/16 04:00 Pulse 90 12/20/16 11:19 Resp 20 12/20/16 11:19 BP 98/48 12/20/16 04:00 Pulse Ox 96 12/20/16 11:19 Intake & Output 12/19/16 12/20/16 12/20/16 18:59 06:59 18:59 Intake Total 170.833 100 Balance 170.833 100 Weight (lbs) 300 lb 236 lb Intake: Intake, IV Amount 170.833 Levofloxacin 500mg/100mL 100 500 mg In 100 ml @ 100 mls/hr IV Q24HR [facility] Rx#: [id number] Sodium Chloride 0.9% 1, 70.833 000 ml @ 50 mls/hr IV . Q20H [facility] Rx#:[id number] Oral 100 Other: # Voids 5 2 # Bowel Movements 1 0 Active Medications: Current Medications Acetaminophen (Tylenol) 650 mg PO Q4H PRN PRN Reason: Pain Or Fever above 101 Stop: 02/16/17 14:43 Albuterol Sulfate (Albuterol 2.5mg/3ml Neb Ud) 2.5 mg HHN QIDRT [facility] Stop: 02/16/17 14:59 Last Admin: 12/20/16 11:10 Dose: 2.5 mg Calcium/Vitamin D (Oscal W/Vitamin D) 1 tab PO DAILY [facility] Stop: 02/18/17 08:59 Last Admin: 12/20/16 08:58 Dose: Not Given Guaifenesin (Robitussin) 200 mg PO Q4HR PRN PRN Reason: Cough or Congestion Stop: 02/16/17 14:43 Levofloxacin (Levaquin Pb) 500 mg in 100 mls @ 100 mls/hr IV Q24HR [facility] Stop: 02/16/17 16:29 Last Infusion: 12/19/16 18:20 Dose: Infused Sodium Chloride (Nacl 0.9%) 1,000 mls @ 50 mls/hr IV .Q20H [facility] Stop: 02/17/17 13:14 Last Infusion: 12/19/16 18:20 Dose: 50 mls/hr Insulin Aspart (Novolog) 0 units SUBQ ACHS REED PRN Reason: Protocol Stop: 02/17/17 16:29 Last Admin: 12/20/16 06:48 Dose: Not Given Insulin Detemir (Levemir Insulin) 26 units SUBQ QAM REED PRN Reason: Protocol Stop: 02/18/17 08:59 Last Admin: 12/20/16 08:59 Dose: Not Given Ipratropium [place] (Atrovent Neb 0.5mg/2.5ml) 0.5 mg IH QIDRT [facility] Stop: 02/16/17 14:59 Last Admin: 12/20/16 11:09 Dose: 0.5 mg Lactulose (Cephulac) 30 gm PO TID [facility] Stop: 02/16/17 20:59 Last Admin: 12/20/16 08:59 Dose: Not Given Lisinopril (Zestril) 20 mg PO DAILY [facility] Stop: 02/18/17 08:59 Last Admin: 12/20/16 08:59 Dose: Not Given Lorazepam (Ativan) 1 mg IV Q4H PRN; Protocol PRN Reason: Seizure Stop: 02/16/17 14:43 Last Admin: 12/19/16 16:34 Dose: 1 mg Magnesium Oxide (Mag-Oxide) 400 mg PO DAILY [facility] Stop: 02/18/17 08:59 Last Admin: 12/20/16 08:59 Dose: Not Given Metformin HCl (Glucophage) 1,000 mg PO BID [facility] Stop: 02/17/17 16:59 Last Admin: 12/20/16 08:59 Dose: Not Given Mupirocin (Bactroban Oint) 1 appl TP BID [facility] Stop: 02/18/17 10:59 Last Admin: 12/20/16 11:52 Dose: 1 appl Ondansetron HCl (Zofran) 4 mg IV Q8H PRN PRN Reason: Nausea / Vomiting Stop: 02/16/17 14:43 Pantoprazole Sodium (Protonix) 40 mg PO BID [facility] Stop: 02/16/17 16:59 Last Admin: 12/20/16 08:59 Dose: Not Given Pantoprazole Sodium (Protonix) 40 mg PO DAILY [facility] Stop: 02/18/17 08:59 Last Admin: 12/20/16 09:00 Dose: Not Given Propranolol HCl (Inderal) 20 mg PO DAILY [facility] Stop: 02/18/17 08:59 Last Admin: 12/20/16 09:00 Dose: Not Given Rifaximin (Xifaxan) 550 mg PO DAILY [facility] Stop: 02/18/17 08:59 Last Admin: 12/20/16 09:00 Dose: Not Given Simvastatin (Zocor) 10 mg PO DAILY [facility] PRN Reason: Protocol Stop: 02/18/17 08:59 Last Admin: 12/20/16 09:00 Dose: Not Given General: other (confused) Neck: Supple Lungs: CTAB Cardiovascular: RRR, Normal S1, Normal S2, without murmur Abdomen: soft, non-tender, non-distended, positive bowel sound Neurological: no change Internal Medicine Assmt/Plan - Assessment Assessment: ALOC Hepatic Encephalopathy DM-2 HYPONATREMIA ACUTE UTI MILD PROTEIN CALORIE MALNUTRITION 5150 STATUS HX CIRROHOSIS ALCOHOL ABUSE - Plan Plan: abdominal US today monitor ammonia level ivf for hydration am labs fall precautions monitor electrolyte levels continue current plan of care Nutritional Asmnt/Malnutr-PDOC - Dietary Evaluation Malnutrition Findings (Please click <Entered> for more info): Nutritional Asmnt/Malnutrition Start: 12/19/16 11: 46 Text: Status: Complete Freq: Document 12/19/16 11:46 LCHENG (Rec: 12/19/16 12:15 LCHENG [id number]) Nutritional Asmnt/Malnutrition Patient General Information Nutritional Screening High Risk Consult Diagnosis ALOC, hepatic encephalopathy, DM, acute UTI Pertinent Medical Hx/Surgical Hx DM, liver cirrhosis Subjective Information Consult for high blood glucose received today. Pt is a 71yo female admitted for increased confusion. Pt seen resing in bed, alert and talktive. Sitter at bedside. Per H&P, pt is a chronic alcoholic. Pt had breakfast this morning, requested diebetic food which is her usual diet. Pt appeared obese, no fat/muscle wasting noted. Pt reported no wt change recently. PO intake 25% of dinner last night. Current Diet Order/ Nutrition Support Low sodium 2gm, low protein Pertinent Medications D5, Levauin Pertinent Labs POC 204-316 since adm 12/18 Na 132L, K 4.1, Cl 99. BUN 17, Cr 0.9, Glu 240, AST 50 H, ALT 27, Ammonia 107 H, Alb 3.4 L Nutritional Hx/Data Height 5 ft 4 in Height (Calculated Centimeters) 162.6 Current Weight (lbs) 300 lb Weight (Calculated Kilograms) 136.1 Weight (Calculated Grams) 250962.7 Usual body Weight (lbs) 240 % Usual Body Weight 125 [place] Body Weight 120 % [place] Body Weight 250 Body Mass Index (BMI) 51.5 Weight Status Morbidly Obese GI Symptoms GI Symptoms None Difficult in: None Food Allergies No Usual diet at home pt reported she followed diebetic diet Skin Integrity/Comment: BILATERAL LOWER EXTREMITIES DRYNESS, BLACK DISCOLORATION ON LOWER ABDOMEN Estimated Nutritional Goals BEE in Kcals: Adj wt of IBW Calories/Kcals/Kg 25-30 Kcals Calculated 5480-7600 (based on adj wt 165lb/75kg) Protein: Adj wt of IBW Protein g/k.8 Protein Calculated 60 Fluid: ml 1875-2250ml (1ml/kcal) Nutritional Problem 2. Problem Problem obesity Etiology inbalenced energy intake Signs/Symptoms: BMI > 50 1. Problem Problem altered nutrition related lab values Etiology hx of DM Signs/Symptoms: Glu 240, POC 204-316 Malnutrition Alert Protein-Calorie Malnutrition N/A Is there a minimum of two criteria No selected? Query Text:Check all the applicable criteria. A minimum of two criteria are recommended for diagnosis of either severe or non-severe malnutrition. Intervention/Recommendation Comments 1. Recommend CCHO diet as pt requested and hx of DM, made aware of RN, notified supervisor [employer] dietary service to provide CCHO, low sodium/protein diet from lunch . 2. Provided nutrition education regarding carb control in meals. Gave carb counting education materials to pt. 3. Monitor PO intake, glucose, labs, skin, wt weekly 4. follow up as high risk in 2 -3 days, 12/21-12/22 Expected Outcomes/Goals Expected Outcomes/Goals 1. PO intake to meet at least 75% of nutritional needs 2. glucose level, labs to improve 3. wt to remain stable 4. skin to improve
--- NOTE | 2016-12-20 12:40 | Consultation ---
DATE OF CONSULTATION: 12/19/2016 REASON FOR CONSULTATION: Hepatic encephalopathy. HISTORY OF PRESENT ILLNESS: This consult obtained through the courtesy of Dr. Lopez. for this 71-year-old with history of diabetes and cirrhosis of the liver, admitted to the hospital for confusion and suicidal ideation. The patient is awake and oriented to self and place, but somewhat confused. She has sometimes shortness of breath. She has occasional abdominal pain. She denies any diarrhea and no GI bleeding. PAST MEDICAL HISTORY: Diabetes and cirrhosis. The patient also had hypertension, hyperlipidemia, and morbid obesity. PAST SURGICAL HISTORY: Seems she had an appendectomy before. SOCIAL HISTORY: The patient has history of alcohol abuse. No drugs and no smoking. FAMILY HISTORY: Noncontributory. ALLERGIES: No known drug allergies. MEDICATIONS: The patient is on Tylenol, albuterol, Robitussin, NovoLog, Levemir, Atrovent, lactulose, levofloxacin, Zestril, lorazepam, magnesium oxide, metformin, Zofran, Protonix, Inderal, Xifaxan, and Zocor. REVIEW OF SYSTEMS: Unobtainable. PHYSICAL EXAMINATION: GENERAL: The patient is awake and oriented to self. VITAL SIGNS: Blood pressure is 113/79, heart rate was 91, respiratory rate was 18, and temperature is 98.6. HEAD AND NECK: Pupils reactive to light. Extraocular muscles could not be tested. Sclerae are anicteric. Conjunctivae not pale. Oral cavity, no lesion. NECK: Supple, no jugular venous distention. No carotid bruits or lymph nodes. CHEST: Good respiratory movements. LUNGS: Clear to auscultation. CARDIOVASCULAR: Regular rate and rhythm. No murmur or gallop. ABDOMEN: Soft. Positive bowel sounds. Abdomen is obese, had ventral hernia. EXTREMITIES: Lower extremities 1+ edema. CENTRAL NERVOUS SYSTEM: No asterixis. LABORATORY DATA: Ammonia level was 107. Platelets was 87 and H and H of 11.7 and 34.0. Bilirubin was 6.8, AST 50, and ALT 27. Albumin was 3.4. IMPRESSION: A 71-year-old with cirrhosis and now with hepatic encephalopathy. ASSESSMENT AND PLAN: 1. Hepatic encephalopathy, most likely secondary to deterioration of the liver function test. I am not quite sure whether this bilirubin is new or old. We do not have any records here, so we will continue with Xifaxan and lactulose. We will check ammonia level later. We will check alpha fetoprotein. We will check abdominal ultrasound. 2. Decompensated cirrhosis as stated above. We will do an ultrasound. We will do paracentesis of this fluid and will continue Xifaxan and lactulose. Other medical problems such as diabetes, hypertension, hyperlipidemia, obesity, etc., as per Dr. Lopez. Thank you, Dr. Lopez for allowing me to participate in the care of this patient. If you have any further questions, please let me know. JOB# [id number] MTDD
--- NOTE | 2016-12-20 13:34 | Diagnostic Imaging Report ---
Abdominal ultrasound HISTORY: Pain The exam is limited due to bowel gas and changes associated with a reported large abdominal hernia. There is incomplete visualization of the liver with no obvious focal lesions. The exam of the gallbladder is also limited. There appears to be intraluminal echogenic densities in the dependent region suggesting cholelithiasis. The common bile duct cannot be well visualized. No obvious intrahepatic biliary dilatation. Pancreas cannot be seen. The right kidney appears normal. Evaluation of the left kidney and spleen could not be performed due to lack of patient cooperation. IMPRESSION: 1. Very Limited/suboptimal exam due to lack of patient cooperation, bowel gas, and changes related to a reported abdominal hernia. 2. Findings suggesting probable cholelithiasis
[2016-12-20] MEDS ORDERED: Probiotic Screen MC PRN (15:39)
[2016-12-20] MEDS: Lactobacillus Rhamnosus 10 Billion CFU Capsule PO SCH (16:27)
[2016-12-20] MEDS: Levofloxacin 500mg/100mL 500 MG/100 ML BAG IV SCH (16:29)
[2016-12-21 06:09] LABS: % BASOPHILS 0.4 % (0.0-2.0); % EOSINOPHILS 4.9 % (0.0-5.0); % LYMPHOCYTES 18.9 % (20.0-50.0); % MONOCYTES 10.4 % (2.0-10.0); % NEUTROPHILS 65.4 % (40.0-80.0); HEMATOCRIT 34.5 % (41.0-60); HEMOGLOBIN 11.9 gm/dL (12-16); MEAN CORPUSCULAR HGB CONC 34.4 pg (28.0-36.0); MEAN PLATELET VOLUME 9.9 fl; NEUTROPHILE ABSOLUTE 3.3 Th/cmm (1.8-8.0); PLATELET COUNT 78 Th/cmm (150-400); RED BLOOD COUNT 3.97 Mil/cmm (3.80-5.20); RED CELL DISTRIBUTION WIDTH 15.1 % (11.5-20.0); WHITE BLOOD COUNT 4.9 Th/cmm (4.8-10.8)
[2016-12-21 06:32] LABS: ANION GAP 12.2 (7.0-16.0); BUN - UREA NITROGEN 8 mg/dL (7-25); CALCIUM SERUM 8.7 mg/dL (8.6-10.3); CARBON DIOXIDE 23.7 mEq/L (21.0-31.0); CHLORIDE 101 mEq/L (98-107); CREATININE - SERUM 0.8 mg/dL (0.6-1.2); POTASSIUM SERUM 3.9 mEq/L (3.5-5.1); SODIUM SERUM 133 mEq/L (136-145)
[2016-12-21 06:33] LABS: GLUCOSE 209 mg/dL (70-105)
[2016-12-21] MEDS: INSULIN ASPART, RECOMBINANT 100 UNITS/ML SUBQ SCH ×4 (06:54→20:51)
[2016-12-21] MEDS: Albuterol Nebulizer 2.5mg/3mL HHN SCH ×4 (07:03→19:38)
[2016-12-21] MEDS: Ipratropium Neb 0.5 mg/2.5 mL UD IH SCH ×4 (07:04→19:38)
--- NOTE | 2016-12-21 07:13 | Progress Notes ---
DATE: 12/20/2016 DATE OF SERVICE: 12/20/2016 REASON FOR CONSULTATION: Psych eval. HISTORY OF PRESENT ILLNESS: A 71-year-old female found by the police at a motel, confused, also noted to be suicidal, worsening confusion, speaking gibberish, nonsensical. On [id number], the patient is yelling, screaming, states that she is sad. Unclear SI. The patient talking about defecating in the middle of the floor, "I will squat right now right here." The patient AO to name, place. She does not know the year, the month. PAST PSYCHIATRIC HISTORY: Unclear. She states that she has been depressed in the past. PAST MEDICAL HISTORY: Diabetes, liver cirrhosis, high ammonia. SOCIAL HISTORY: Apparently a chronic alcoholic. Apparently . She has an address. She states she lives with family. She states she lives near the hospital. MEDICATIONS: Noted. MENTAL STATUS EXAMINATION: Stated age, overweight female, rambling, disoriented, yelling at times, talking nonsensically. Unclear SI or HI, but she states that she suffers from depression. Insight and judgment diminished. Unclear psychotic symptoms. The patient is a poor historian. Poor insight, poor judgment, poor impulse control. PROVISIONAL DIAGNOSES: Mood unspecified. The patient also with what appears to be an encephalopathy. RECOMMENDATIONS AND PLAN: Continue 1:1. The patient may need psych placement if her behaviors continue as her ammonia is lowered. [facility]# [id number]
--- NOTE | 2016-12-21 10:27 | GI Progress Note ---
Subjective - Review of Systems Service Date: 12/21/16 Subjective: Pt is A/Ox2-3. She thinks is 1917. No other complaints Objective - Results Result Diagrams: 12/21/16 05:55 12/21/16 05:55 Recent Labs: Laboratory Last Values WBC 4.9 Th/cmm (4.8-10.8) 12/21/16 05:55 RBC 3.97 Mil/cmm (3.80-5.20) 12/21/16 05:55 Hgb 11.9 gm/dL (12-16) L 12/21/16 05:55 Hct 34.5 % (41.0-60) L 12/21/16 05:55 MCV 87.0 fl (81-100) 12/21/16 05:55 MCH 30.0 pg (27.0-31.0) 12/21/16 05:55 MCHC Differential 34.4 pg (28.0-36.0) 12/21/16 05:55 RDW 15.1 % (11.5-20.0) 12/21/16 05:55 Plt Count 78 Th/cmm (150-400) L 12/21/16 05:55 MPV 9.9 fl 12/21/16 05:55 Neutrophils % 65.4 % (40.0-80.0) 12/21/16 05:55 Lymphocytes % 18.9 % (20.0-50.0) L 12/21/16 05:55 Monocytes % 10.4 % (2.0-10.0) H 12/21/16 05:55 Eosinophils % 4.9 % (0.0-5.0) 12/21/16 05:55 Basophils % 0.4 % (0.0-2.0) 12/21/16 05:55 PT 13.1 SECONDS (9.5-11.5) H 12/20/16 08:35 INR 1.25 (0.5-1.4) 12/20/16 08:35 PTT (Actin FS) 30.1 SECONDS (26.0-38.0) 12/20/16 08:35 Sodium 133 mEq/L (136-145) L 12/21/16 05:55 Potassium 3.9 mEq/L (3.5-5.1) 12/21/16 05:55 Chloride 101 mEq/L (98-107) 12/21/16 05:55 Carbon Dioxide 23.7 mEq/L (21.0-31.0) 12/21/16 05:55 Anion Gap 12.2 (7.0-16.0) 12/21/16 05:55 BUN 8 mg/dL (7-25) 12/21/16 05:55 Creatinine 0.8 mg/dL (0.6-1.2) 12/21/16 05:55 Est GFR ( Amer) TNP 12/21/16 05:55 Est GFR (Non-Af Amer) TNP 12/21/16 05:55 BUN/Creatinine Ratio 10.0 12/21/16 05:55 Glucose 209 mg/dL (70-105) H D 12/21/16 05:55 POC Glucose 223 MG/DL (70 - 105) H 12/21/16 06:10 Hemoglobin A1c % 7.5 % (4.0-6.0) H 12/18/16 13:59 Calcium 8.7 mg/dL (8.6-10.3) 12/21/16 05:55 Total Bilirubin 6.8 mg/dL (0.3-1.0) H 12/18/16 12:32 AST 50 U/L (13-39) H 12/18/16 12:32 ALT 27 U/L (7-52) 12/18/16 12:32 Alkaline Phosphatase 85 U/L (34-104) 12/18/16 12:32 Ammonia 71 umol/L (16-53) H 12/21/16 05:55 Total Protein 7.3 gm/dL (6.0-8.3) 12/18/16 12:32 Albumin 3.4 gm/dL (3.7-5.3) L 12/18/16 12:32 Globulin 3.9 gm/dL 12/18/16 12:32 Albumin/Globulin Ratio 0.9 (1.0-1.8) L 12/18/16 12:32 Amylase 33 U/L (29-103) 12/18/16 12:32 Lipase 30 U/L (11-82) 12/18/16 12:32 Urine Source RANDOM 12/18/16 14:50 Urine Color DARK ORANGE 12/18/16 14:50 Urine Clarity SLIGHTLY HAZY (CLEAR) 12/18/16 14:50 Urine pH 5.5 (4.6 - 8.0) 12/18/16 14:50 Ur Specific [place] >= 1.030 (1.005-1.030) 12/18/16 14:50 Urine Protein 100 mg/dL (NEGATIVE) H 12/18/16 14:50 Urine Glucose (UA) NEGATIVE mg/dL (NEGATIVE) 12/18/16 14:50 Urine Ketones TRACE mg/dL (NEGATIVE) 12/18/16 14:50 Urine Blood TRACE (NEGATIVE) 12/18/16 14:50 Urine Nitrate NEGATIVE (NEGATIVE) 12/18/16 14:50 Urine Bilirubin SMALL (NEGATIVE) H 12/18/16 14:50 Urine Urobilinogen 1.0 E.U./dL (0.2 - 1.0) 12/18/16 14:50 Ur Leukocyte Esterase NEGATIVE (NEGATIVE) 12/18/16 14:50 Urine RBC 0-2 /hpf (0-5) 12/18/16 14:50 Urine WBC 2-5 /hpf (0-5) 12/18/16 14:50 Ur Epithelial Cells OCCASIONAL /lpf (FEW) 12/18/16 14:50 Amorphous Sediment MANY URATES (NONE SEEN) 12/18/16 14:50 Urine Bacteria 1+ /hpf (NONE SEEN) H 12/18/16 14:50 Fine Granular Casts 0-2 /lpf (NONE SEEN) H 12/18/16 14:50 Urine Opiates Screen NEGATIVE (NEGATIVE) 12/18/16 14:50 Urine Methadone Screen NEGATIVE (NEGATIVE) 12/18/16 14:50 Ur Barbiturates Screen NEGATIVE (NEGATIVE) 12/18/16 14:50 Ur Tricyclics Screen NEGATIVE (NEGATIVE) 12/18/16 14:50 Ur Phencyclidine Scrn NEGATIVE (NEGATIVE) 12/18/16 14:50 Amphetamines Screen NEGATIVE (NEGATIVE) 12/18/16 14:50 U Methamphetamines Scrn NEGATIVE (NEGATIVE) 12/18/16 14:50 U Benzodiazepines Scrn NEGATIVE (NEGATIVE) 12/18/16 14:50 U Cocaine Metab Screen NEGATIVE (NEGATIVE) 12/18/16 14:50 U Cannabinoids Screen NEGATIVE (NEGATIVE) 12/18/16 14:50 - Physical Exam Vitals and I&O: Vital Signs Temp 97.5 F 12/21/16 04:00 Pulse 87 12/21/16 07:04 Resp 18 12/21/16 07:05 BP 150/80 12/21/16 04:00 Pulse Ox 96 12/21/16 07:04 Intake & Output 12/20/16 12/21/16 12/21/16 18:59 06:59 18:59 Intake Total 1029.167 150 Balance 1029.167 150 Weight (lbs) 107.048 kg 108.862 kg Intake: Intake, IV Amount 1029.167 Levofloxacin 500mg/100mL 100 500 mg In 100 ml @ 100 mls/hr IV Q24HR [facility] Rx#: [id number] Sodium Chloride 0.9% 1, 929.167 000 ml @ 50 mls/hr IV . Q20H [facility] Rx#:[id number] Oral 150 Other: # Voids 1 3 # Bowel Movements 1 1 Active Medications: Current Medications Acetaminophen (Tylenol) 650 mg PO Q4H PRN PRN Reason: Pain Or Fever above 101 Stop: 02/16/17 14:43 Albuterol Sulfate (Albuterol 2.5mg/3ml Neb Ud) 2.5 mg HHN QIDRT [facility] Stop: 02/16/17 14:59 Last Admin: 12/21/16 07:03 Dose: 2.5 mg Calcium/Vitamin D (Oscal W/Vitamin D) 1 tab PO DAILY [facility] Stop: 02/18/17 08:59 Last Admin: 12/20/16 08:58 Dose: Not Given Guaifenesin (Robitussin) 200 mg PO Q4HR PRN PRN Reason: Cough or Congestion Stop: 02/16/17 14:43 Levofloxacin (Levaquin Pb) 500 mg in 100 mls @ 100 mls/hr IV Q24HR [facility] Stop: 02/16/17 16:29 Last Infusion: 12/20/16 18:41 Dose: Infused Sodium Chloride (Nacl 0.9%) 1,000 mls @ 50 mls/hr IV .Q20H [facility] Stop: 02/17/17 13:14 Last Infusion: 12/20/16 18:41 Dose: Infused Insulin Aspart (Novolog) 0 units SUBQ ACHS [facility] PRN Reason: Protocol Stop: 02/17/17 16:29 Last Admin: 12/21/16 06:54 Dose: 2 units Insulin Detemir (Levemir Insulin) 26 units SUBQ QAM [facility] PRN Reason: Protocol Stop: 02/18/17 08:59 Last Admin: 12/20/16 08:59 Dose: Not Given Ipratropium [place] (Atrovent Neb 0.5mg/2.5ml) 0.5 mg IH QIDRT [facility] Stop: 02/16/17 14:59 Last Admin: 12/21/16 07:04 Dose: 0.5 mg Lactobacillus Rhamnosus (Culturelle) 1 each PO DAILY [facility] Stop: 02/18/17 15:59 Last Admin: 12/20/16 16:27 Dose: 1 each Lactulose (Cephulac) 30 gm PO TID [facility] Stop: 02/16/17 20:59 Last Admin: 12/20/16 23:37 Dose: Not Given Lisinopril (Zestril) 20 mg PO DAILY [facility] Stop: 02/18/17 08:59 Last Admin: 12/20/16 08:59 Dose: Not Given Lorazepam (Ativan) 1 mg IV Q4H PRN; Protocol PRN Reason: Seizure Stop: 02/16/17 14:43 Last Admin: 12/19/16 16:34 Dose: 1 mg Lorazepam (Ativan) 1 mg PO Q6HR PRN; Protocol PRN Reason: Agitation Stop: 02/18/17 21:29 Last Admin: 12/20/16 22:21 Dose: 1 mg Magnesium Oxide (Mag-Oxide) 400 mg PO DAILY [facility] Stop: 02/18/17 08:59 Last Admin: 12/20/16 08:59 Dose: Not Given Metformin HCl (Glucophage) 1,000 mg PO BID [facility] Stop: 02/17/17 16:59 Last Admin: 12/20/16 16:27 Dose: 1,000 mg Miscellaneous (Probiotic Screen) 1 ea MC PRN PRN PRN Reason: PROTOCOL Stop: 02/18/17 15:38 Mupirocin (Bactroban Oint) 1 appl TP BID [facility] Stop: 02/18/17 10:59 Last Admin: 12/20/16 16:27 Dose: 1 appl Ondansetron HCl (Zofran) 4 mg IV Q8H PRN PRN Reason: Nausea / Vomiting Stop: 02/16/17 14:43 Pantoprazole Sodium (Protonix) 40 mg PO BID [facility] Stop: 02/16/17 16:59 Last Admin: 12/20/16 16:27 Dose: 40 mg Pantoprazole Sodium (Protonix) 40 mg PO DAILY [facility] Stop: 02/18/17 08:59 Last Admin: 12/20/16 09:00 Dose: Not Given Propranolol HCl (Inderal) 20 mg PO DAILY [facility] Stop: 02/18/17 08:59 Last Admin: 12/20/16 09:00 Dose: Not Given Rifaximin (Xifaxan) 550 mg PO DAILY [facility] Stop: 02/18/17 08:59 Last Admin: 12/20/16 09:00 Dose: Not Given Simvastatin (Zocor) 10 mg PO DAILY [facility] PRN Reason: Protocol Stop: 02/18/17 08:59 Last Admin: 12/20/16 09:00 Dose: Not Given General: Alert HEENT: Atraumatic, PERRLA Abdomen: Soft, Other (non tender, no guard, no rebound) Psych/Mental Status: Mental status NL Assessment/Plan - Assessment Assessment: # Liver cirrhosis, presumed from EtOH # Decompensated by HE # Jaundice HE appears better today, altough pt still not A/Ox3. US reviewed and no biliary dilation. Jaundice is likely reflective of chronic alcoholic liver disease - avoid EtOH - track LFTs - continue rifaximin and lactulose - no ascites on US - no hepatoma on US, due again in 6 months
[2016-12-21] MEDS: Insulin Detemir 100 units/mL 10mL Vial SUBQ SCH (10:45)
[2016-12-21] MEDS: Calcium Carb/Vit D 500 mg/200 U Tab PO SCH (10:48)
[2016-12-21] MEDS: Lactobacillus Rhamnosus 10 Billion CFU Capsule PO SCH (10:49)
[2016-12-21] MEDS: Pantoprazole 40 mg EC Tab PO SCH ×3 (10:59→17:48)
--- NOTE | 2016-12-21 11:30 | Internal Medicine Prog Note ---
Internal Medicine Subjective - Subjective Service Date: 12/21/16 Patient is:: awake, verbal, confused Per staff patient has:: tolerating meds, other Internal Medicine Objective - Results Result Diagrams: 12/21/16 05:55 12/21/16 05:55 Recent Labs: Laboratory Last Values WBC 4.9 Th/cmm (4.8-10.8) 12/21/16 05:55 RBC 3.97 Mil/cmm (3.80-5.20) 12/21/16 05:55 Hgb 11.9 gm/dL (12-16) L 12/21/16 05:55 Hct 34.5 % (41.0-60) L 12/21/16 05:55 MCV 87.0 fl (81-100) 12/21/16 05:55 MCH 30.0 pg (27.0-31.0) 12/21/16 05:55 MCHC Differential 34.4 pg (28.0-36.0) 12/21/16 05:55 RDW 15.1 % (11.5-20.0) 12/21/16 05:55 Plt Count 78 Th/cmm (150-400) L 12/21/16 05:55 MPV 9.9 fl 12/21/16 05:55 Neutrophils % 65.4 % (40.0-80.0) 12/21/16 05:55 Lymphocytes % 18.9 % (20.0-50.0) L 12/21/16 05:55 Monocytes % 10.4 % (2.0-10.0) H 12/21/16 05:55 Eosinophils % 4.9 % (0.0-5.0) 12/21/16 05:55 Basophils % 0.4 % (0.0-2.0) 12/21/16 05:55 PT 13.1 SECONDS (9.5-11.5) H 12/20/16 08:35 INR 1.25 (0.5-1.4) 12/20/16 08:35 PTT (Actin FS) 30.1 SECONDS (26.0-38.0) 12/20/16 08:35 Sodium 133 mEq/L (136-145) L 12/21/16 05:55 Potassium 3.9 mEq/L (3.5-5.1) 12/21/16 05:55 Chloride 101 mEq/L (98-107) 12/21/16 05:55 Carbon Dioxide 23.7 mEq/L (21.0-31.0) 12/21/16 05:55 Anion Gap 12.2 (7.0-16.0) 12/21/16 05:55 BUN 8 mg/dL (7-25) 12/21/16 05:55 Creatinine 0.8 mg/dL (0.6-1.2) 12/21/16 05:55 Est GFR ( Amer) TNP 12/21/16 05:55 Est GFR (Non-Af Amer) TNP 12/21/16 05:55 BUN/Creatinine Ratio 10.0 12/21/16 05:55 Glucose 209 mg/dL (70-105) H D 12/21/16 05:55 POC Glucose 223 MG/DL (70 - 105) H 12/21/16 06:10 Hemoglobin A1c % 7.5 % (4.0-6.0) H 12/18/16 13:59 Calcium 8.7 mg/dL (8.6-10.3) 12/21/16 05:55 Total Bilirubin 6.8 mg/dL (0.3-1.0) H 12/18/16 12:32 AST 50 U/L (13-39) H 12/18/16 12:32 ALT 27 U/L (7-52) 12/18/16 12:32 Alkaline Phosphatase 85 U/L (34-104) 12/18/16 12:32 Ammonia 71 umol/L (16-53) H 12/21/16 05:55 Total Protein 7.3 gm/dL (6.0-8.3) 12/18/16 12:32 Albumin 3.4 gm/dL (3.7-5.3) L 12/18/16 12:32 Globulin 3.9 gm/dL 12/18/16 12:32 Albumin/Globulin Ratio 0.9 (1.0-1.8) L 12/18/16 12:32 Amylase 33 U/L (29-103) 12/18/16 12:32 Lipase 30 U/L (11-82) 12/18/16 12:32 Tumor Marker AFP 5.2 ng/mL (0.0-8.3) 12/20/16 08:35 Urine Source RANDOM 12/18/16 14:50 Urine Color DARK ORANGE 12/18/16 14:50 Urine Clarity SLIGHTLY HAZY (CLEAR) 12/18/16 14:50 Urine pH 5.5 (4.6 - 8.0) 12/18/16 14:50 Ur Specific [place] >= 1.030 (1.005-1.030) 12/18/16 14:50 Urine Protein 100 mg/dL (NEGATIVE) H 12/18/16 14:50 Urine Glucose (UA) NEGATIVE mg/dL (NEGATIVE) 12/18/16 14:50 Urine Ketones TRACE mg/dL (NEGATIVE) 12/18/16 14:50 Urine Blood TRACE (NEGATIVE) 12/18/16 14:50 Urine Nitrate NEGATIVE (NEGATIVE) 12/18/16 14:50 Urine Bilirubin SMALL (NEGATIVE) H 12/18/16 14:50 Urine Urobilinogen 1.0 E.U./dL (0.2 - 1.0) 12/18/16 14:50 Ur Leukocyte Esterase NEGATIVE (NEGATIVE) 12/18/16 14:50 Urine RBC 0-2 /hpf (0-5) 12/18/16 14:50 Urine WBC 2-5 /hpf (0-5) 12/18/16 14:50 Ur Epithelial Cells OCCASIONAL /lpf (FEW) 12/18/16 14:50 Amorphous Sediment MANY URATES (NONE SEEN) 12/18/16 14:50 Urine Bacteria 1+ /hpf (NONE SEEN) H 12/18/16 14:50 Fine Granular Casts 0-2 /lpf (NONE SEEN) H 12/18/16 14:50 Urine Opiates Screen NEGATIVE (NEGATIVE) 12/18/16 14:50 Urine Methadone Screen NEGATIVE (NEGATIVE) 12/18/16 14:50 Ur Barbiturates Screen NEGATIVE (NEGATIVE) 12/18/16 14:50 Ur Tricyclics Screen NEGATIVE (NEGATIVE) 12/18/16 14:50 Ur Phencyclidine Scrn NEGATIVE (NEGATIVE) 12/18/16 14:50 Amphetamines Screen NEGATIVE (NEGATIVE) 12/18/16 14:50 U Methamphetamines Scrn NEGATIVE (NEGATIVE) 12/18/16 14:50 U Benzodiazepines Scrn NEGATIVE (NEGATIVE) 12/18/16 14:50 U Cocaine Metab Screen NEGATIVE (NEGATIVE) 12/18/16 14:50 U Cannabinoids Screen NEGATIVE (NEGATIVE) 12/18/16 14:50 - Physical Exam Vitals and I&O: Vital Signs Temp 98.2 F 12/21/16 11:23 Pulse 72 12/21/16 11:23 Resp 18 12/21/16 11:23 BP 129/69 12/21/16 11:23 Pulse Ox 98 12/21/16 11:23 Intake & Output 12/20/16 12/21/16 12/21/16 18:59 06:59 18:59 Intake Total 1029.167 150 Balance 1029.167 150 Weight (lbs) 236 lb 240 lb Intake: Intake, IV Amount 1029.167 Levofloxacin 500mg/100mL 100 500 mg In 100 ml @ 100 mls/hr IV Q24HR [facility] Rx#: [id number] Sodium Chloride 0.9% 1, 929.167 000 ml @ 50 mls/hr IV . Q20H [facility] Rx#:[id number] Oral 150 Other: # Voids 1 3 # Bowel Movements 1 1 Active Medications: Current Medications Acetaminophen (Tylenol) 650 mg PO Q4H PRN PRN Reason: Pain Or Fever above 101 Stop: 02/16/17 14:43 Albuterol Sulfate (Albuterol 2.5mg/3ml Neb Ud) 2.5 mg HHN QIDRT [facility] Stop: 02/16/17 14:59 Last Admin: 12/21/16 10:56 Dose: 2.5 mg Calcium/Vitamin D (Oscal W/Vitamin D) 1 tab PO DAILY [facility] Stop: 02/18/17 08:59 Last Admin: 12/21/16 10:48 Dose: 1 tab Guaifenesin (Robitussin) 200 mg PO Q4HR PRN PRN Reason: Cough or Congestion Stop: 02/16/17 14:43 Levofloxacin (Levaquin Pb) 500 mg in 100 mls @ 100 mls/hr IV Q24HR [facility] Stop: 02/16/17 16:29 Last Infusion: 12/20/16 18:41 Dose: Infused Sodium Chloride (Nacl 0.9%) 1,000 mls @ 50 mls/hr IV .Q20H [facility] Stop: 02/17/17 13:14 Last Infusion: 12/20/16 18:41 Dose: Infused Insulin Aspart (Novolog) 0 units SUBQ ACHS [facility] PRN Reason: Protocol Stop: 02/17/17 16:29 Last Admin: 12/21/16 06:54 Dose: 2 units Insulin Detemir (Levemir Insulin) 26 units SUBQ QAM [facility] PRN Reason: Protocol Stop: 02/18/17 08:59 Last Admin: 12/21/16 10:45 Dose: 26 unit Ipratropium [place] (Atrovent Neb 0.5mg/2.5ml) 0.5 mg IH QIDRT [facility] Stop: 02/16/17 14:59 Last Admin: 12/21/16 10:56 Dose: 0.5 mg Lactobacillus Rhamnosus (Culturelle) 1 each PO DAILY [facility] Stop: 02/18/17 15:59 Last Admin: 12/21/16 10:49 Dose: 1 each Lactulose (Cephulac) 30 gm PO TID [facility] Stop: 02/16/17 20:59 Last Admin: 12/20/16 23:37 Dose: Not Given Lisinopril (Zestril) 20 mg PO DAILY [facility] Stop: 02/18/17 08:59 Last Admin: 12/21/16 10:48 Dose: 20 mg Lorazepam (Ativan) 1 mg IV Q4H PRN; Protocol PRN Reason: Seizure Stop: 02/16/17 14:43 Last Admin: 12/19/16 16:34 Dose: 1 mg Lorazepam (Ativan) 1 mg PO Q6HR PRN; Protocol PRN Reason: Agitation Stop: 02/18/17 21:29 Last Admin: 12/21/16 11:00 Dose: 1 mg Magnesium Oxide (Mag-Oxide) 400 mg PO DAILY [facility] Stop: 02/18/17 08:59 Last Admin: 12/21/16 10:48 Dose: 400 mg Metformin HCl (Glucophage) 1,000 mg PO BID [facility] Stop: 02/17/17 16:59 Last Admin: 12/21/16 10:46 Dose: 1,000 mg Miscellaneous (Probiotic Screen) 1 ea MC PRN PRN PRN Reason: PROTOCOL Stop: 02/18/17 15:38 Mupirocin (Bactroban Oint) 1 appl TP BID [facility] Stop: 02/18/17 10:59 Last Admin: 12/21/16 11:19 Dose: 1 appl Ondansetron HCl (Zofran) 4 mg IV Q8H PRN PRN Reason: Nausea / Vomiting Stop: 02/16/17 14:43 Pantoprazole Sodium (Protonix) 40 mg PO BID [facility] Stop: 02/16/17 16:59 Last Admin: 12/21/16 11:00 Dose: Not Given Pantoprazole Sodium (Protonix) 40 mg PO DAILY [facility] Stop: 02/18/17 08:59 Last Admin: 12/21/16 10:59 Dose: 40 mg Propranolol HCl (Inderal) 20 mg PO DAILY [facility] Stop: 02/18/17 08:59 Last Admin: 12/21/16 10:49 Dose: 20 mg Rifaximin (Xifaxan) 550 mg PO DAILY [facility] Stop: 02/18/17 08:59 Last Admin: 12/21/16 10:48 Dose: 550 mg Simvastatin (Zocor) 10 mg PO DAILY [facility] PRN Reason: Protocol Stop: 02/18/17 08:59 Last Admin: 12/21/16 10:48 Dose: 10 mg General: alert, other (confused) HEENT: NC/AT Neck: Supple Lungs: CTAB Cardiovascular: RRR, Normal S1, Normal S2, without murmur Abdomen: soft, non-tender, non-distended, positive bowel sound Neurological: no change Internal Medicine Assmt/Plan - Assessment Assessment: ALOC Hepatic Encephalopathy DM-2 HYPONATREMIA ACUTE UTI MILD PROTEIN CALORIE MALNUTRITION 5150 STATUS HX CIRROHOSIS ALCOHOL ABUSE - Plan Plan: dc planning in am if labs wnl monitor ammonia level ivf for hydration am labs fall precautions monitor electrolyte levels continue current plan of care Nutritional Asmnt/Malnutr-PDOC - Dietary Evaluation Malnutrition Findings (Please click <Entered> for more info): Nutritional Asmnt/Malnutrition Start: 12/19/16 11: 46 Text: Status: Complete Freq: Document 12/19/16 11:46 YADIRA (Rec: 12/19/16 12:15 YADIRA [id number]) Nutritional Asmnt/Malnutrition Patient General Information Nutritional Screening High Risk Consult Diagnosis ALOC, hepatic encephalopathy, DM, acute UTI Pertinent Medical Hx/Surgical Hx DM, liver cirrhosis Subjective Information Consult for high blood glucose received today. Pt is a 71yo female admitted for increased confusion. Pt seen resing in bed, alert and talktive. Sitter at bedside. Per H&P, pt is a chronic alcoholic. Pt had breakfast this morning, requested diebetic food which is her usual diet. Pt appeared obese, no fat/muscle wasting noted. Pt reported no wt change recently. PO intake 25% of dinner last night. Current Diet Order/ Nutrition Support Low sodium 2gm, low protein Pertinent Medications D5, Levauin Pertinent Labs POC 204-316 since adm 12/18 Na 132L, K 4.1, Cl 99. BUN 17, Cr 0.9, Glu 240, AST 50 H, ALT 27, Ammonia 107 H, Alb 3.4 L Nutritional Hx/Data Height 5 ft 4 in Height (Calculated Centimeters) 162.6 Current Weight (lbs) 300 lb Weight (Calculated Kilograms) 136.1 Weight (Calculated Grams) 553981.7 Usual body Weight (lbs) 240 % Usual Body Weight 125 [place] Body Weight 120 % [place] Body Weight 250 Body Mass Index (BMI) 51.5 Weight Status Morbidly Obese GI Symptoms GI Symptoms None Difficult in: None Food Allergies No Usual diet at home pt reported she followed diebetic diet Skin Integrity/Comment: BILATERAL LOWER EXTREMITIES DRYNESS, BLACK DISCOLORATION ON LOWER ABDOMEN Estimated Nutritional Goals BEE in Kcals: Adj wt of IBW Calories/Kcals/Kg 25-30 Kcals Calculated [id number] (based on adj wt 165lb/75kg) Protein: Adj wt of IBW Protein g/k.8 Protein Calculated 60 Fluid: ml 1875-2250ml (1ml/kcal) Nutritional Problem 2. Problem Problem obesity Etiology inbalenced energy intake Signs/Symptoms: BMI > 50 1. Problem Problem altered nutrition related lab values Etiology hx of DM Signs/Symptoms: Glu 240, POC 204-316 Malnutrition Alert Protein-Calorie Malnutrition N/A Is there a minimum of two criteria No selected? Query Text:Check all the applicable criteria. A minimum of two criteria are recommended for diagnosis of either severe or non-severe malnutrition. Intervention/Recommendation Comments 1. Recommend CCHO diet as pt requested and hx of DM, made aware of RN, notified birth certificate clerk to provide CCHO, low sodium/protein diet from lunch . 2. Provided nutrition education regarding carb control in meals. Gave carb counting education materials to pt. 3. Monitor PO intake, glucose, labs, skin, wt weekly 4. follow up as high risk in 2 -3 days, 12/21-12/22 Expected Outcomes/Goals Expected Outcomes/Goals 1. PO intake to meet at least 75% of nutritional needs 2. glucose level, labs to improve 3. wt to remain stable 4. skin to improve
[2016-12-21] MEDS: Lactulose 10 Gm/15 mL 30mL UDC PO SCH ×4 (11:39→20:48)
[2016-12-21] MEDS: Levofloxacin 500mg/100mL 500 MG/100 ML BAG IV SCH (17:29)
--- NOTE | 2016-12-22 04:22 | Progress Notes ---
DATE: 12/21/2016 PSYCHIATRIC PROGRESS NOTE SUBJECTIVE: Chart reviewed and the patient interviewed. Also discussed the patient's condition with the staff and reviewed records and labs. The patient is still anxious and she is still having episodes of irritability and agitation. The patient also is still having mood swings. The patient also is still feeling hopeless at times. She also is still at times seems to be confused and at times is cooperative with her treatment. Otherwise, the patient is compliant taking her medications. ASSESSMENT: The patient is still depressed and confused. TREATMENT PLAN: We will continue to monitor her behavior and her condition closely. Also, continue to evaluate possibility of admitting to [facility], anxious, not improved. JOB# [id number]
--- NOTE | 2016-12-22 05:40 | Progress Notes ---
DATE: 12/21/2016 HISTORY OF PRESENT ILLNESS: The 71-year-old female found by the police at a motel confused, also noted to be suicidal, worsening confusion, speaking nonsensically. On [id number], the patient is calmer today. She states that she is not suicidal, but does at times get sad. Seems more oriented and engaged. It is not quite sure where she will live at this time. Her did come in the morning. He is involved. Staff noting she is more redirectable and calmer. PAST PSYCHIATRIC HISTORY: She states she has been depressed in the past. She states she has never attempted suicide. PAST MEDICAL HISTORY: Diabetes, liver cirrhosis, pneumonia. SOCIAL HISTORY: Apparently a chronic alcoholic. , living in a motel. MEDICATIONS: Noted. MENTAL STATUS EXAMINATION: Stated age, overweight female, more oriented and engaged. Denying any SI, no HI. No overt psychotic symptoms. She is more oriented and engaged. Better concentration. Answering questions more appropriately. PROVISIONAL DIAGNOSES: Mood unspecified. The patient with encephalopathy, which seems to be improving to some extent. PLAN: We will continue to monitor. Continue 1:1 sitter. Recommend increasing collateral. The patient does seem to be benefiting from the treatments. She seems more engaged, less confused, better concentration. At this point, she may not need psychiatric admission as she does seem to be improving and possibly her symptoms were due to her encephalopathy, but she is not having any SI at this time. JOB# [id number]
[2016-12-22 06:15] LABS: % BASOPHILS 0.3 % (0.0-2.0); % EOSINOPHILS 5.8 % (0.0-5.0); % LYMPHOCYTES 20.5 % (20.0-50.0); % MONOCYTES 10.4 % (2.0-10.0); HEMOGLOBIN 12.9 gm/dL (12-16); MEAN CORPUSCULAR HEMOGLOBIN 29.8 pg (27.0-31.0); MEAN CORPUSCULAR HGB CONC 33.9 pg (28.0-36.0); MEAN PLATELET VOLUME 10.1 fl; NEUTROPHILE ABSOLUTE 3.6 Th/cmm (1.8-8.0); PLATELET COUNT 85 Th/cmm (150-400); RED BLOOD COUNT 4.33 Mil/cmm (3.80-5.20); RED CELL DISTRIBUTION WIDTH 15.9 % (11.5-20.0); WHITE BLOOD COUNT 5.7 Th/cmm (4.8-10.8)
[2016-12-22 06:17] LABS: HEMATOCRIT 38.1 % (41.0-60)
[2016-12-22 06:49] LABS: ALB/GLOB RATIO 0.8 (1.0-1.8); ALKALINE PHOSPHATASE 68 U/L (34-104); ANION GAP 12.8 (7.0-16.0); BILIRUBIN,DIRECT 0.84 mg/dL (0.0-0.2); BILIRUBIN,TOTAL 3.6 mg/dL (0.3-1.0); BUN - UREA NITROGEN 11 mg/dL (7-25); BUN/CREATININE RATIO 12.2; CALCIUM SERUM 9.3 mg/dL (8.6-10.3); CARBON DIOXIDE 21.3 mEq/L (21.0-31.0); CHLORIDE 102 mEq/L (98-107); CREATININE - SERUM 0.9 mg/dL (0.6-1.2); POTASSIUM SERUM 4.1 mEq/L (3.5-5.1); SGOT 45 U/L (13-39); SGPT/ALT 20 U/L (7-52); SODIUM SERUM 132 mEq/L (136-145)
[2016-12-22] MEDS: INSULIN ASPART, RECOMBINANT 100 UNITS/ML SUBQ SCH ×4 (07:05→20:56)
[2016-12-22 07:06] LABS: GLUCOSE 156 mg/dL (70-105)
[2016-12-22] MEDS: Albuterol Nebulizer 2.5mg/3mL HHN SCH ×4 (08:35→19:41)
[2016-12-22] MEDS: Ipratropium Neb 0.5 mg/2.5 mL UD IH SCH ×4 (08:35→19:41)
--- NOTE | 2016-12-22 10:15 | GI Progress Note ---
Subjective - Review of Systems Service Date: 12/22/16 Subjective: Awake, wants to go to her 's house which she says is close by Objective - Results Result Diagrams: 12/22/16 05:55 12/22/16 05:55 Recent Labs: Laboratory Last Values WBC 5.7 Th/cmm (4.8-10.8) 12/22/16 05:55 RBC 4.33 Mil/cmm (3.80-5.20) 12/22/16 05:55 Hgb 12.9 gm/dL (12-16) 12/22/16 05:55 Hct 38.1 % (41.0-60) L D 12/22/16 05:55 MCV 88.0 fl (81-100) 12/22/16 05:55 MCH 29.8 pg (27.0-31.0) 12/22/16 05:55 MCHC Differential 33.9 pg (28.0-36.0) 12/22/16 05:55 RDW 15.9 % (11.5-20.0) 12/22/16 05:55 Plt Count 85 Th/cmm (150-400) L 12/22/16 05:55 MPV 10.1 fl 12/22/16 05:55 Neutrophils % 63.0 % (40.0-80.0) 12/22/16 05:55 Lymphocytes % 20.5 % (20.0-50.0) 12/22/16 05:55 Monocytes % 10.4 % (2.0-10.0) H 12/22/16 05:55 Eosinophils % 5.8 % (0.0-5.0) H 12/22/16 05:55 Basophils % 0.3 % (0.0-2.0) 12/22/16 05:55 PT 13.1 SECONDS (9.5-11.5) H 12/20/16 08:35 INR 1.25 (0.5-1.4) 12/20/16 08:35 PTT (Actin FS) 30.1 SECONDS (26.0-38.0) 12/20/16 08:35 Sodium 132 mEq/L (136-145) L 12/22/16 05:55 Potassium 4.1 mEq/L (3.5-5.1) 12/22/16 05:55 Chloride 102 mEq/L (98-107) 12/22/16 05:55 Carbon Dioxide 21.3 mEq/L (21.0-31.0) 12/22/16 05:55 Anion Gap 12.8 (7.0-16.0) 12/22/16 05:55 BUN 11 mg/dL (7-25) 12/22/16 05:55 Creatinine 0.9 mg/dL (0.6-1.2) 12/22/16 05:55 Est GFR ( Amer) TNP 12/22/16 05:55 Est GFR (Non-Af Amer) TNP 12/22/16 05:55 BUN/Creatinine Ratio 12.2 12/22/16 05:55 Glucose 156 mg/dL (70-105) H D 12/22/16 05:55 POC Glucose 160 MG/DL (70 - 105) H 12/22/16 07:03 Hemoglobin A1c % 7.5 % (4.0-6.0) H 12/18/16 13:59 Calcium 9.3 mg/dL (8.6-10.3) 12/22/16 05:55 Total Bilirubin 3.6 mg/dL (0.3-1.0) H 12/22/16 05:55 Direct Bilirubin 0.84 mg/dL (0.0-0.2) H 12/22/16 05:55 AST 45 U/L (13-39) H 12/22/16 05:55 ALT 20 U/L (7-52) 12/22/16 05:55 Alkaline Phosphatase 68 U/L (34-104) 12/22/16 05:55 Ammonia 94 umol/L (16-53) H 12/22/16 05:55 Total Protein 7.1 gm/dL (6.0-8.3) 12/22/16 05:55 Albumin 3.1 gm/dL (3.7-5.3) L 12/22/16 05:55 Globulin 4.0 gm/dL 12/22/16 05:55 Albumin/Globulin Ratio 0.8 (1.0-1.8) L 12/22/16 05:55 Amylase 33 U/L (29-103) 12/18/16 12:32 Lipase 30 U/L (11-82) 12/18/16 12:32 Tumor Marker AFP 5.2 ng/mL (0.0-8.3) 12/20/16 08:35 Urine Source RANDOM 12/18/16 14:50 Urine Color DARK ORANGE 12/18/16 14:50 Urine Clarity SLIGHTLY HAZY (CLEAR) 12/18/16 14:50 Urine pH 5.5 (4.6 - 8.0) 12/18/16 14:50 Ur Specific [place] >= 1.030 (1.005-1.030) 12/18/16 14:50 Urine Protein 100 mg/dL (NEGATIVE) H 12/18/16 14:50 Urine Glucose (UA) NEGATIVE mg/dL (NEGATIVE) 12/18/16 14:50 Urine Ketones TRACE mg/dL (NEGATIVE) 12/18/16 14:50 Urine Blood TRACE (NEGATIVE) 12/18/16 14:50 Urine Nitrate NEGATIVE (NEGATIVE) 12/18/16 14:50 Urine Bilirubin SMALL (NEGATIVE) H 12/18/16 14:50 Urine Urobilinogen 1.0 E.U./dL (0.2 - 1.0) 12/18/16 14:50 Ur Leukocyte Esterase NEGATIVE (NEGATIVE) 12/18/16 14:50 Urine RBC 0-2 /hpf (0-5) 12/18/16 14:50 Urine WBC 2-5 /hpf (0-5) 12/18/16 14:50 Ur Epithelial Cells OCCASIONAL /lpf (FEW) 12/18/16 14:50 Amorphous Sediment MANY URATES (NONE SEEN) 12/18/16 14:50 Urine Bacteria 1+ /hpf (NONE SEEN) H 12/18/16 14:50 Fine Granular Casts 0-2 /lpf (NONE SEEN) H 12/18/16 14:50 Urine Opiates Screen NEGATIVE (NEGATIVE) 12/18/16 14:50 Urine Methadone Screen NEGATIVE (NEGATIVE) 12/18/16 14:50 Ur Barbiturates Screen NEGATIVE (NEGATIVE) 12/18/16 14:50 Ur Tricyclics Screen NEGATIVE (NEGATIVE) 12/18/16 14:50 Ur Phencyclidine Scrn NEGATIVE (NEGATIVE) 12/18/16 14:50 Amphetamines Screen NEGATIVE (NEGATIVE) 12/18/16 14:50 U Methamphetamines Scrn NEGATIVE (NEGATIVE) 12/18/16 14:50 U Benzodiazepines Scrn NEGATIVE (NEGATIVE) 12/18/16 14:50 U Cocaine Metab Screen NEGATIVE (NEGATIVE) 12/18/16 14:50 U Cannabinoids Screen NEGATIVE (NEGATIVE) 12/18/16 14:50 - Physical Exam Vitals and I&O: Vital Signs Temp 97.5 F 12/22/16 04:00 Pulse 80 12/22/16 08:37 Resp 18 12/22/16 08:37 BP 147/69 12/22/16 04:00 Pulse Ox 95 12/22/16 08:37 Intake & Output 12/21/16 12/22/16 12/22/16 18:59 06:59 18:59 Intake Total 200 0 Balance 200 0 Weight (lbs) 108.862 kg 108.862 kg Intake: Oral 200 0 Other: # Voids 3 0 # Bowel Movements 2 0 Active Medications: Current Medications Acetaminophen (Tylenol) 650 mg PO Q4H PRN PRN Reason: Pain Or Fever above 101 Stop: 02/16/17 14:43 Albuterol Sulfate (Albuterol 2.5mg/3ml Neb Ud) 2.5 mg HHN QIDRT [facility] Stop: 02/16/17 14:59 Last Admin: 12/22/16 08:35 Dose: 2.5 mg Calcium/Vitamin D (Oscal W/Vitamin D) 1 tab PO DAILY [facility] Stop: 02/18/17 08:59 Last Admin: 12/21/16 10:48 Dose: 1 tab Guaifenesin (Robitussin) 200 mg PO Q4HR PRN PRN Reason: Cough or Congestion Stop: 02/16/17 14:43 Levofloxacin (Levaquin Pb) 500 mg in 100 mls @ 100 mls/hr IV Q24HR [facility] Stop: 02/16/17 16:29 Last Admin: 12/21/16 17:29 Dose: Not Given Sodium Chloride (Nacl 0.9%) 1,000 mls @ 50 mls/hr IV .Q20H [facility] Stop: 02/17/17 13:14 Last Infusion: 12/20/16 18:41 Dose: Infused Insulin Aspart (Novolog) 0 units SUBQ ACHS [facility] PRN Reason: Protocol Stop: 02/17/17 16:29 Last Admin: 12/22/16 07:05 Dose: Not Given Insulin Detemir (Levemir Insulin) 26 units SUBQ QAM [facility] PRN Reason: Protocol Stop: 02/18/17 08:59 Last Admin: 12/21/16 10:45 Dose: 26 unit Ipratropium [place] (Atrovent Neb 0.5mg/2.5ml) 0.5 mg IH QIDRT [facility] Stop: 02/16/17 14:59 Last Admin: 12/22/16 08:35 Dose: 0.5 mg Lactobacillus Rhamnosus (Culturelle) 1 each PO DAILY [facility] Stop: 02/18/17 15:59 Last Admin: 12/21/16 10:49 Dose: 1 each Lactulose (Cephulac) 30 gm PO TID [facility] Stop: 02/16/17 20:59 Last Admin: 12/21/16 20:48 Dose: Not Given Lisinopril (Zestril) 20 mg PO DAILY [facility] Stop: 02/18/17 08:59 Last Admin: 12/21/16 10:48 Dose: 20 mg Lorazepam (Ativan) 1 mg IV Q4H PRN; Protocol PRN Reason: Seizure Stop: 02/16/17 14:43 Last Admin: 12/19/16 16:34 Dose: 1 mg Lorazepam (Ativan) 1 mg PO Q6HR PRN; Protocol PRN Reason: Agitation Stop: 02/18/17 21:29 Last Admin: 12/21/16 11:00 Dose: 1 mg Magnesium Oxide (Mag-Oxide) 400 mg PO DAILY [facility] Stop: 02/18/17 08:59 Last Admin: 12/21/16 10:48 Dose: 400 mg Metformin HCl (Glucophage) 1,000 mg PO BID [facility] Stop: 02/17/17 16:59 Last Admin: 12/21/16 17:48 Dose: 1,000 mg Miscellaneous (Probiotic Screen) 1 ea MC PRN PRN PRN Reason: PROTOCOL Stop: 02/18/17 15:38 Mupirocin (Bactroban Oint) 1 appl TP BID [facility] Stop: 02/18/17 10:59 Last Admin: 12/21/16 17:47 Dose: 1 appl Ondansetron HCl (Zofran) 4 mg IV Q8H PRN PRN Reason: Nausea / Vomiting Stop: 02/16/17 14:43 Pantoprazole Sodium (Protonix) 40 mg PO BID [facility] Stop: 02/16/17 16:59 Last Admin: 12/21/16 17:48 Dose: 40 mg Pantoprazole Sodium (Protonix) 40 mg PO DAILY [facility] Stop: 02/18/17 08:59 Last Admin: 12/21/16 10:59 Dose: 40 mg Propranolol HCl (Inderal) 20 mg PO DAILY [facility] Stop: 02/18/17 08:59 Last Admin: 12/21/16 10:49 Dose: 20 mg Rifaximin (Xifaxan) 550 mg PO DAILY [facility] Stop: 02/18/17 08:59 Last Admin: 12/21/16 10:48 Dose: 550 mg Simvastatin (Zocor) 10 mg PO DAILY [facility] PRN Reason: Protocol Stop: 02/18/17 08:59 Last Admin: 12/21/16 10:48 Dose: 10 mg General: Alert HEENT: Atraumatic, PERRLA Abdomen: Soft, Other (non tender, no guard, no rebound) Psych/Mental Status: Mental status NL Assessment/Plan - Assessment Assessment: # Liver cirrhosis, presumed from EtOH # Decompensated by HE # Jaundice HE appears improved. US reviewed and no biliary dilation. Jaundice is likely reflective of chronic alcoholic liver disease - absolute avoidance of EtOH - track LFTs - continue rifaximin and lactulose on dc (at least lactulose) - no ascites on US - no hepatoma on US, due again in 6 months
[2016-12-22] MEDS: Calcium Carb/Vit D 500 mg/200 U Tab PO SCH (10:17)
[2016-12-22] MEDS: Pantoprazole 40 mg EC Tab PO SCH ×3 (10:17→18:12)
[2016-12-22] MEDS: Lactobacillus Rhamnosus 10 Billion CFU Capsule PO SCH (10:18)
[2016-12-22] MEDS: Insulin Detemir 100 units/mL 10mL Vial SUBQ SCH (10:28)
[2016-12-22] MEDS: Lactulose 10 Gm/15 mL 30mL UDC PO SCH ×3 (10:31→20:57)
--- NOTE | 2016-12-22 11:14 | Internal Medicine Prog Note ---
Internal Medicine Subjective - Subjective Service Date: 12/22/16 Patient seen and examined:: with staff Patient is:: awake, verbal, agitated, confused Per staff patient has:: tolerating meds, other Internal Medicine Objective - Results Result Diagrams: 12/22/16 05:55 12/22/16 05:55 Recent Labs: Laboratory Last Values WBC 5.7 Th/cmm (4.8-10.8) 12/22/16 05:55 RBC 4.33 Mil/cmm (3.80-5.20) 12/22/16 05:55 Hgb 12.9 gm/dL (12-16) 12/22/16 05:55 Hct 38.1 % (41.0-60) L D 12/22/16 05:55 MCV 88.0 fl (81-100) 12/22/16 05:55 MCH 29.8 pg (27.0-31.0) 12/22/16 05:55 MCHC Differential 33.9 pg (28.0-36.0) 12/22/16 05:55 RDW 15.9 % (11.5-20.0) 12/22/16 05:55 Plt Count 85 Th/cmm (150-400) L 12/22/16 05:55 MPV 10.1 fl 12/22/16 05:55 Neutrophils % 63.0 % (40.0-80.0) 12/22/16 05:55 Lymphocytes % 20.5 % (20.0-50.0) 12/22/16 05:55 Monocytes % 10.4 % (2.0-10.0) H 12/22/16 05:55 Eosinophils % 5.8 % (0.0-5.0) H 12/22/16 05:55 Basophils % 0.3 % (0.0-2.0) 12/22/16 05:55 PT 13.1 SECONDS (9.5-11.5) H 12/20/16 08:35 INR 1.25 (0.5-1.4) 12/20/16 08:35 PTT (Actin FS) 30.1 SECONDS (26.0-38.0) 12/20/16 08:35 Sodium 132 mEq/L (136-145) L 12/22/16 05:55 Potassium 4.1 mEq/L (3.5-5.1) 12/22/16 05:55 Chloride 102 mEq/L (98-107) 12/22/16 05:55 Carbon Dioxide 21.3 mEq/L (21.0-31.0) 12/22/16 05:55 Anion Gap 12.8 (7.0-16.0) 12/22/16 05:55 BUN 11 mg/dL (7-25) 12/22/16 05:55 Creatinine 0.9 mg/dL (0.6-1.2) 12/22/16 05:55 Est GFR ( Amer) TNP 12/22/16 05:55 Est GFR (Non-Af Amer) TNP 12/22/16 05:55 BUN/Creatinine Ratio 12.2 12/22/16 05:55 Glucose 156 mg/dL (70-105) H D 12/22/16 05:55 POC Glucose 290 MG/DL (70 - 105) H 12/22/16 10:26 Hemoglobin A1c % 7.5 % (4.0-6.0) H 12/18/16 13:59 Calcium 9.3 mg/dL (8.6-10.3) 12/22/16 05:55 Total Bilirubin 3.6 mg/dL (0.3-1.0) H 12/22/16 05:55 Direct Bilirubin 0.84 mg/dL (0.0-0.2) H 12/22/16 05:55 AST 45 U/L (13-39) H 12/22/16 05:55 ALT 20 U/L (7-52) 12/22/16 05:55 Alkaline Phosphatase 68 U/L (34-104) 12/22/16 05:55 Ammonia 94 umol/L (16-53) H 12/22/16 05:55 Total Protein 7.1 gm/dL (6.0-8.3) 12/22/16 05:55 Albumin 3.1 gm/dL (3.7-5.3) L 12/22/16 05:55 Globulin 4.0 gm/dL 12/22/16 05:55 Albumin/Globulin Ratio 0.8 (1.0-1.8) L 12/22/16 05:55 Amylase 33 U/L (29-103) 12/18/16 12:32 Lipase 30 U/L (11-82) 12/18/16 12:32 Tumor Marker AFP 5.2 ng/mL (0.0-8.3) 12/20/16 08:35 Urine Source RANDOM 12/18/16 14:50 Urine Color DARK ORANGE 12/18/16 14:50 Urine Clarity SLIGHTLY HAZY (CLEAR) 12/18/16 14:50 Urine pH 5.5 (4.6 - 8.0) 12/18/16 14:50 Ur Specific [place] >= 1.030 (1.005-1.030) 12/18/16 14:50 Urine Protein 100 mg/dL (NEGATIVE) H 12/18/16 14:50 Urine Glucose (UA) NEGATIVE mg/dL (NEGATIVE) 12/18/16 14:50 Urine Ketones TRACE mg/dL (NEGATIVE) 12/18/16 14:50 Urine Blood TRACE (NEGATIVE) 12/18/16 14:50 Urine Nitrate NEGATIVE (NEGATIVE) 12/18/16 14:50 Urine Bilirubin SMALL (NEGATIVE) H 12/18/16 14:50 Urine Urobilinogen 1.0 E.U./dL (0.2 - 1.0) 12/18/16 14:50 Ur Leukocyte Esterase NEGATIVE (NEGATIVE) 12/18/16 14:50 Urine RBC 0-2 /hpf (0-5) 12/18/16 14:50 Urine WBC 2-5 /hpf (0-5) 12/18/16 14:50 Ur Epithelial Cells OCCASIONAL /lpf (FEW) 12/18/16 14:50 Amorphous Sediment MANY URATES (NONE SEEN) 12/18/16 14:50 Urine Bacteria 1+ /hpf (NONE SEEN) H 12/18/16 14:50 Fine Granular Casts 0-2 /lpf (NONE SEEN) H 12/18/16 14:50 Urine Opiates Screen NEGATIVE (NEGATIVE) 12/18/16 14:50 Urine Methadone Screen NEGATIVE (NEGATIVE) 12/18/16 14:50 Ur Barbiturates Screen NEGATIVE (NEGATIVE) 12/18/16 14:50 Ur Tricyclics Screen NEGATIVE (NEGATIVE) 12/18/16 14:50 Ur Phencyclidine Scrn NEGATIVE (NEGATIVE) 12/18/16 14:50 Amphetamines Screen NEGATIVE (NEGATIVE) 12/18/16 14:50 U Methamphetamines Scrn NEGATIVE (NEGATIVE) 12/18/16 14:50 U Benzodiazepines Scrn NEGATIVE (NEGATIVE) 12/18/16 14:50 U Cocaine Metab Screen NEGATIVE (NEGATIVE) 12/18/16 14:50 U Cannabinoids Screen NEGATIVE (NEGATIVE) 12/18/16 14:50 - Physical Exam Vitals and I&O: Vital Signs Temp 97.5 F 12/22/16 04:00 Pulse 75 12/22/16 10:39 Resp 18 12/22/16 08:37 BP 120/63 12/22/16 10:39 Pulse Ox 95 12/22/16 08:37 Intake & Output 12/21/16 12/22/16 12/22/16 18:59 06:59 18:59 Intake Total 200 0 Balance 200 0 Weight (lbs) 240 lb 240 lb Intake: Oral 200 0 Other: # Voids 3 0 # Bowel Movements 2 0 Active Medications: Current Medications Acetaminophen (Tylenol) 650 mg PO Q4H PRN PRN Reason: Pain Or Fever above 101 Stop: 02/16/17 14:43 Albuterol Sulfate (Albuterol 2.5mg/3ml Neb Ud) 2.5 mg HHN QIDRT [facility] Stop: 02/16/17 14:59 Last Admin: 12/22/16 08:35 Dose: 2.5 mg Calcium/Vitamin D (Oscal W/Vitamin D) 1 tab PO DAILY [facility] Stop: 02/18/17 08:59 Last Admin: 12/22/16 10:17 Dose: 1 tab Guaifenesin (Robitussin) 200 mg PO Q4HR PRN PRN Reason: Cough or Congestion Stop: 02/16/17 14:43 Levofloxacin (Levaquin Pb) 500 mg in 100 mls @ 100 mls/hr IV Q24HR [facility] Stop: 02/16/17 16:29 Last Admin: 12/21/16 17:29 Dose: Not Given Sodium Chloride (Nacl 0.9%) 1,000 mls @ 50 mls/hr IV .Q20H [facility] Stop: 02/17/17 13:14 Last Infusion: 12/20/16 18:41 Dose: Infused Insulin Aspart (Novolog) 0 units SUBQ ACHS [facility] PRN Reason: Protocol Stop: 02/17/17 16:29 Last Admin: 12/22/16 07:05 Dose: Not Given Insulin Detemir (Levemir Insulin) 26 units SUBQ QAM [facility] PRN Reason: Protocol Stop: 02/18/17 08:59 Last Admin: 12/22/16 10:28 Dose: 26 unit Ipratropium [place] (Atrovent Neb 0.5mg/2.5ml) 0.5 mg IH QIDRT [facility] Stop: 02/16/17 14:59 Last Admin: 12/22/16 08:35 Dose: 0.5 mg Lactobacillus Rhamnosus (Culturelle) 1 each PO DAILY [facility] Stop: 02/18/17 15:59 Last Admin: 12/22/16 10:18 Dose: 1 each Lactulose (Cephulac) 30 gm PO TID [facility] Stop: 02/16/17 20:59 Last Admin: 12/22/16 10:31 Dose: 30 gm Lisinopril (Zestril) 20 mg PO DAILY [facility] Stop: 02/18/17 08:59 Last Admin: 12/22/16 10:17 Dose: 20 mg Lorazepam (Ativan) 1 mg IV Q4H PRN; Protocol PRN Reason: Seizure Stop: 02/16/17 14:43 Last Admin: 12/19/16 16:34 Dose: 1 mg Lorazepam (Ativan) 1 mg PO Q6HR PRN; Protocol PRN Reason: Agitation Stop: 02/18/17 21:29 Last Admin: 12/21/16 11:00 Dose: 1 mg Magnesium Oxide (Mag-Oxide) 400 mg PO DAILY [facility] Stop: 02/18/17 08:59 Last Admin: 12/22/16 10:18 Dose: 400 mg Metformin HCl (Glucophage) 1,000 mg PO BID [facility] Stop: 02/17/17 16:59 Last Admin: 12/22/16 10:16 Dose: 1,000 mg Miscellaneous (Probiotic Screen) 1 ea MC PRN PRN PRN Reason: PROTOCOL Stop: 02/18/17 15:38 Mupirocin (Bactroban Oint) 1 appl TP BID [facility] Stop: 02/18/17 10:59 Last Admin: 12/22/16 10:14 Dose: 1 appl Ondansetron HCl (Zofran) 4 mg IV Q8H PRN PRN Reason: Nausea / Vomiting Stop: 02/16/17 14:43 Pantoprazole Sodium (Protonix) 40 mg PO BID [facility] Stop: 02/16/17 16:59 Last Admin: 12/22/16 10:32 Dose: Not Given Pantoprazole Sodium (Protonix) 40 mg PO DAILY [facility] Stop: 02/18/17 08:59 Last Admin: 12/22/16 10:17 Dose: 40 mg Propranolol HCl (Inderal) 20 mg PO DAILY [facility] Stop: 02/18/17 08:59 Last Admin: 12/22/16 10:39 Dose: 20 mg Rifaximin (Xifaxan) 550 mg PO DAILY [facility] Stop: 02/18/17 08:59 Last Admin: 12/22/16 10:15 Dose: 550 mg Simvastatin (Zocor) 10 mg PO DAILY [facility] PRN Reason: Protocol Stop: 02/18/17 08:59 Last Admin: 12/22/16 10:19 Dose: 10 mg General: alert, other (confused) HEENT: NC/AT Neck: Supple Lungs: CTAB Cardiovascular: RRR, Normal S1, Normal S2, without murmur Abdomen: soft, non-tender, non-distended, positive bowel sound Neurological: no change Internal Medicine Assmt/Plan - Assessment Assessment: ALOC Hepatic Encephalopathy DM-2 HYPONATREMIA ACUTE UTI MILD PROTEIN CALORIE MALNUTRITION 5150 STATUS HX CIRROHOSIS ALCOHOL ABUSE - Plan Plan: monitor ammonia level ivf for hydration am labs fall precautions monitor electrolyte levels continue current plan of care Nutritional Asmnt/Malnutr-PDOC - Dietary Evaluation Malnutrition Findings (Please click <Entered> for more info): Nutritional Asmnt/Malnutrition Start: 12/19/16 11: 46 Text: Status: Complete Freq: Document 12/19/16 11:46 DARON (Rec: 12/19/16 12:15 [id number] Nutritional Asmnt/Malnutrition Patient General Information Nutritional Screening High Risk Consult Diagnosis ALOC, hepatic encephalopathy, DM, acute UTI Pertinent Medical Hx/Surgical Hx DM, liver cirrhosis Subjective Information Consult for high blood glucose received today. Pt is a 71yo female admitted for increased confusion. Pt seen resing in bed, alert and talktive. Sitter at bedside. Per H&P, pt is a chronic alcoholic. Pt had breakfast this morning, requested diebetic food which is her usual diet. Pt appeared obese, no fat/muscle wasting noted. Pt reported no wt change recently. PO intake 25% of dinner last night. Current Diet Order/ Nutrition Support Low sodium 2gm, low protein Pertinent Medications D5, Levauin Pertinent Labs POC 204-316 since adm 12/18 Na 132L, K 4.1, Cl 99. BUN 17, Cr 0.9, Glu 240, AST 50 H, ALT 27, Ammonia 107 H, Alb 3.4 L Nutritional Hx/Data Height 5 ft 4 in Height (Calculated Centimeters) 162.6 Current Weight (lbs) 300 lb Weight (Calculated Kilograms) 136.1 Weight (Calculated Grams) 960302.7 Usual body Weight (lbs) 240 % Usual Body Weight 125 [place] Body Weight 120 % [place] Body Weight 250 Body Mass Index (BMI) 51.5 Weight Status Morbidly Obese GI Symptoms GI Symptoms None Difficult in: None Food Allergies No Usual diet at home pt reported she followed diebetic diet Skin Integrity/Comment: BILATERAL LOWER EXTREMITIES DRYNESS, BLACK DISCOLORATION ON LOWER ABDOMEN Estimated Nutritional Goals BEE in Kcals: Adj wt of IBW Calories/Kcals/Kg 25-30 Kcals Calculated 6410-8044 (based on adj wt 165lb/75kg) Protein: Adj wt of IBW Protein g/k.8 Protein Calculated 60 Fluid: ml 1875-2250ml (1ml/kcal) Nutritional Problem 2. Problem Problem obesity Etiology inbalenced energy intake Signs/Symptoms: BMI > 50 1. Problem Problem altered nutrition related lab values Etiology hx of DM Signs/Symptoms: Glu 240, POC 204-316 Malnutrition Alert Protein-Calorie Malnutrition N/A Is there a minimum of two criteria No selected? Query Text:Check all the applicable criteria. A minimum of two criteria are recommended for diagnosis of either severe or non-severe malnutrition. Intervention/Recommendation Comments 1. Recommend CCHO diet as pt requested and hx of DM, made aware of RN, notified dietitian chief to provide CCHO, low sodium/protein diet from lunch . 2. Provided nutrition education regarding carb control in meals. Gave carb counting education materials to pt. 3. Monitor PO intake, glucose, labs, skin, wt weekly 4. follow up as high risk in 2 -3 days, 12/21-12/22 Expected Outcomes/Goals Expected Outcomes/Goals 1. PO intake to meet at least 75% of nutritional needs 2. glucose level, labs to improve 3. wt to remain stable 4. skin to improve
[2016-12-22] MEDS: Levofloxacin 500mg/100mL 500 MG/100 ML BAG IV SCH (16:50)
--- NOTE | 2016-12-22 22:36 | Progress Notes ---
DATE: Chart reviewed and the patient interviewed. Also discussed the patient's condition with the staff and reviewed records and labs. The patient's affect is brighter. The patient is less agitated and she is cooperative with her treatment and she is able to carry on coherent conversations. The patient said that she can live with her daughter or son or to go to a senior citizen place. Since the patient is not suicidal or homicidal or psychotic the patient can be discharged with plans for outpatient treatment. [facility]# [id number]
[2016-12-23 06:13] LABS: % BASOPHILS 0.6 % (0.0-2.0); % EOSINOPHILS 5.4 % (0.0-5.0); % LYMPHOCYTES 18.9 % (20.0-50.0); % MONOCYTES 10.2 % (2.0-10.0); % NEUTROPHILS 64.9 % (40.0-80.0); HEMATOCRIT 38.9 % (41.0-60); HEMOGLOBIN 13.1 gm/dL (12-16); MEAN CELL VOLUME 87.7 fl (81-100); MEAN CORPUSCULAR HEMOGLOBIN 29.5 pg (27.0-31.0); MEAN CORPUSCULAR HGB CONC 33.7 pg (28.0-36.0); MEAN PLATELET VOLUME 10.7 fl; NEUTROPHILE ABSOLUTE 3.3 Th/cmm (1.8-8.0); PLATELET COUNT 87 Th/cmm (150-400); RED BLOOD COUNT 4.44 Mil/cmm (3.80-5.20); RED CELL DISTRIBUTION WIDTH 15.4 % (11.5-20.0); WHITE BLOOD COUNT 5.1 Th/cmm (4.8-10.8)
[2016-12-23] MEDS: INSULIN ASPART, RECOMBINANT 100 UNITS/ML SUBQ SCH ×4 (06:36→21:48)
[2016-12-23 06:43] LABS: ANION GAP 10.9 (7.0-16.0); BUN - UREA NITROGEN 11 mg/dL (7-25); BUN/CREATININE RATIO 13.8; CALCIUM SERUM 9.3 mg/dL (8.6-10.3); CARBON DIOXIDE 25.8 mEq/L (21.0-31.0); CHLORIDE 100 mEq/L (98-107); CREATININE - SERUM 0.8 mg/dL (0.6-1.2); POTASSIUM SERUM 3.7 mEq/L (3.5-5.1); SODIUM SERUM 133 mEq/L (136-145)
[2016-12-23 06:45] LABS: GLUCOSE 209 mg/dL (70-105)
[2016-12-23] MEDS: Ipratropium Neb 0.5 mg/2.5 mL UD IH SCH ×4 (07:35→19:09)
[2016-12-23] MEDS: Albuterol Nebulizer 2.5mg/3mL HHN SCH ×4 (07:35→19:09)
--- NOTE | 2016-12-23 08:27 | Diagnostic Imaging Report ---
Exam: CT examination of the chest HISTORY: Mass Total DLP equals 353 CTDI equals 9.6 Findings: Multiple contiguous thin section of the chest were obtained from thoracic outlet to the upper abdomen without the administration of contrast material therefore the study is somewhat limited. The study demonstrates normal appearance of right vessels of the neck but the study is limited due to lack of contrast material. Adenopathy is noted excluded. The heart is enlarged. Atherosclerotic calcifications are noted. No acute pulmonic infiltrates or effusions appreciated. There is evidence for multiple left ovary fractures. There is evidence for cholelithiasis. Splenomegaly is appreciated. IMPRESSION: Essentially unremarkable examination of the chest. Old left rib fractures. Cardiomegaly atherosclerotic calcification of thoracic aorta. Splenomegaly, cholelithiasis
[2016-12-23] MEDS: Calcium Carb/Vit D 500 mg/200 U Tab PO SCH (08:55)
[2016-12-23] MEDS: Lactobacillus Rhamnosus 10 Billion CFU Capsule PO SCH (08:55)
[2016-12-23] MEDS: Pantoprazole 40 mg EC Tab PO SCH ×2 (08:55→17:33)
[2016-12-23] MEDS: Lactulose 10 Gm/15 mL 30mL UDC PO SCH ×3 (08:56→21:19)
[2016-12-23] MEDS: Insulin Detemir 100 units/mL 10mL Vial SUBQ SCH (10:13)
--- NOTE | 2016-12-23 11:03 | GI Progress Note ---
Subjective - Review of Systems Subjective: A/Ox2-3, no new events Objective - Results Result Diagrams: 12/23/16 05:30 12/23/16 05:30 Recent Labs: Laboratory Last Values WBC 5.1 Th/cmm (4.8-10.8) 12/23/16 05:30 RBC 4.44 Mil/cmm (3.80-5.20) 12/23/16 05:30 Hgb 13.1 gm/dL (12-16) 12/23/16 05:30 Hct 38.9 % (41.0-60) L 12/23/16 05:30 MCV 87.7 fl (81-100) 12/23/16 05:30 MCH 29.5 pg (27.0-31.0) 12/23/16 05:30 MCHC Differential 33.7 pg (28.0-36.0) 12/23/16 05:30 RDW 15.4 % (11.5-20.0) 12/23/16 05:30 Plt Count 87 Th/cmm (150-400) L 12/23/16 05:30 MPV 10.7 fl 12/23/16 05:30 Neutrophils % 64.9 % (40.0-80.0) 12/23/16 05:30 Lymphocytes % 18.9 % (20.0-50.0) L 12/23/16 05:30 Monocytes % 10.2 % (2.0-10.0) H 12/23/16 05:30 Eosinophils % 5.4 % (0.0-5.0) H 12/23/16 05:30 Basophils % 0.6 % (0.0-2.0) 12/23/16 05:30 PT 13.1 SECONDS (9.5-11.5) H 12/20/16 08:35 INR 1.25 (0.5-1.4) 12/20/16 08:35 PTT (Actin FS) 30.1 SECONDS (26.0-38.0) 12/20/16 08:35 Sodium 133 mEq/L (136-145) L 12/23/16 05:30 Potassium 3.7 mEq/L (3.5-5.1) 12/23/16 05:30 Chloride 100 mEq/L (98-107) 12/23/16 05:30 Carbon Dioxide 25.8 mEq/L (21.0-31.0) 12/23/16 05:30 Anion Gap 10.9 (7.0-16.0) 12/23/16 05:30 BUN 11 mg/dL (7-25) 12/23/16 05:30 Creatinine 0.8 mg/dL (0.6-1.2) 12/23/16 05:30 Est GFR ( Amer) TNP 12/23/16 05:30 Est GFR (Non-Af Amer) TNP 12/23/16 05:30 BUN/Creatinine Ratio 13.8 12/23/16 05:30 Glucose 209 mg/dL (70-105) H D 12/23/16 05:30 POC Glucose 328 MG/DL (70 - 105) H 12/23/16 10:10 Hemoglobin A1c % 7.5 % (4.0-6.0) H 12/18/16 13:59 Calcium 9.3 mg/dL (8.6-10.3) 12/23/16 05:30 Total Bilirubin 3.6 mg/dL (0.3-1.0) H 12/22/16 05:55 Direct Bilirubin 0.84 mg/dL (0.0-0.2) H 12/22/16 05:55 AST 45 U/L (13-39) H 12/22/16 05:55 ALT 20 U/L (7-52) 12/22/16 05:55 Alkaline Phosphatase 68 U/L (34-104) 12/22/16 05:55 Ammonia 79 umol/L (16-53) H 12/23/16 05:30 Total Protein 7.1 gm/dL (6.0-8.3) 12/22/16 05:55 Albumin 3.1 gm/dL (3.7-5.3) L 12/22/16 05:55 Globulin 4.0 gm/dL 12/22/16 05:55 Albumin/Globulin Ratio 0.8 (1.0-1.8) L 12/22/16 05:55 Amylase 33 U/L (29-103) 12/18/16 12:32 Lipase 30 U/L (11-82) 12/18/16 12:32 Tumor Marker AFP 5.2 ng/mL (0.0-8.3) 12/20/16 08:35 Urine Source RANDOM 12/18/16 14:50 Urine Color DARK ORANGE 12/18/16 14:50 Urine Clarity SLIGHTLY HAZY (CLEAR) 12/18/16 14:50 Urine pH 5.5 (4.6 - 8.0) 12/18/16 14:50 Ur Specific [place] >= 1.030 (1.005-1.030) 12/18/16 14:50 Urine Protein 100 mg/dL (NEGATIVE) H 12/18/16 14:50 Urine Glucose (UA) NEGATIVE mg/dL (NEGATIVE) 12/18/16 14:50 Urine Ketones TRACE mg/dL (NEGATIVE) 12/18/16 14:50 Urine Blood TRACE (NEGATIVE) 12/18/16 14:50 Urine Nitrate NEGATIVE (NEGATIVE) 12/18/16 14:50 Urine Bilirubin SMALL (NEGATIVE) H 12/18/16 14:50 Urine Urobilinogen 1.0 E.U./dL (0.2 - 1.0) 12/18/16 14:50 Ur Leukocyte Esterase NEGATIVE (NEGATIVE) 12/18/16 14:50 Urine RBC 0-2 /hpf (0-5) 12/18/16 14:50 Urine WBC 2-5 /hpf (0-5) 12/18/16 14:50 Ur Epithelial Cells OCCASIONAL /lpf (FEW) 12/18/16 14:50 Amorphous Sediment MANY URATES (NONE SEEN) 12/18/16 14:50 Urine Bacteria 1+ /hpf (NONE SEEN) H 12/18/16 14:50 Fine Granular Casts 0-2 /lpf (NONE SEEN) H 12/18/16 14:50 Urine Opiates Screen NEGATIVE (NEGATIVE) 12/18/16 14:50 Urine Methadone Screen NEGATIVE (NEGATIVE) 12/18/16 14:50 Ur Barbiturates Screen NEGATIVE (NEGATIVE) 12/18/16 14:50 Ur Tricyclics Screen NEGATIVE (NEGATIVE) 12/18/16 14:50 Ur Phencyclidine Scrn NEGATIVE (NEGATIVE) 12/18/16 14:50 Amphetamines Screen NEGATIVE (NEGATIVE) 12/18/16 14:50 U Methamphetamines Scrn NEGATIVE (NEGATIVE) 12/18/16 14:50 U Benzodiazepines Scrn NEGATIVE (NEGATIVE) 12/18/16 14:50 U Cocaine Metab Screen NEGATIVE (NEGATIVE) 12/18/16 14:50 U Cannabinoids Screen NEGATIVE (NEGATIVE) 12/18/16 14:50 - Physical Exam Vitals and I&O: Vital Signs Temp 97.6 F 12/23/16 04:00 Pulse 65 12/23/16 08:55 Resp 18 12/23/16 07:35 BP 156/57 12/23/16 08:55 Pulse Ox 95 12/23/16 07:35 Intake & Output 12/22/16 12/23/16 12/23/16 18:59 06:59 18:59 Intake Total 350 100 Balance 350 100 Weight (lbs) 108.862 kg 108.182 kg Intake: Oral 350 100 Other: # Voids 3 2 # Bowel Movements 1 0 Active Medications: Current Medications Acetaminophen (Tylenol) 650 mg PO Q4H PRN PRN Reason: Pain Or Fever above 101 Stop: 02/16/17 14:43 Albuterol Sulfate (Albuterol 2.5mg/3ml Neb Ud) 2.5 mg HHN QIDRT [facility] Stop: 02/16/17 14:59 Last Admin: 12/23/16 07:35 Dose: 2.5 mg Calcium/Vitamin D (Oscal W/Vitamin D) 1 tab PO DAILY [facility] Stop: 02/18/17 08:59 Last Admin: 12/23/16 08:55 Dose: 1 tab Guaifenesin (Robitussin) 200 mg PO Q4HR PRN PRN Reason: Cough or Congestion Stop: 02/16/17 14:43 Levofloxacin (Levaquin Pb) 500 mg in 100 mls @ 100 mls/hr IV Q24HR [facility] Stop: 02/16/17 16:29 Last Admin: 12/22/16 16:50 Dose: Not Given Sodium Chloride (Nacl 0.9%) 1,000 mls @ 50 mls/hr IV .Q20H [facility] Stop: 02/17/17 13:14 Last Infusion: 12/20/16 18:41 Dose: Infused Insulin Aspart (Novolog) 0 units SUBQ ACHS [facility] PRN Reason: Protocol Stop: 02/17/17 16:29 Last Admin: 12/23/16 06:36 Dose: 2 units Insulin Detemir (Levemir Insulin) 26 units SUBQ QAM [facility] PRN Reason: Protocol Stop: 02/18/17 08:59 Last Admin: 12/23/16 10:13 Dose: 26 unit Ipratropium [place] (Atrovent Neb 0.5mg/2.5ml) 0.5 mg IH QIDRT [facility] Stop: 02/16/17 14:59 Last Admin: 12/23/16 07:35 Dose: 0.5 mg Lactobacillus Rhamnosus (Culturelle) 1 each PO DAILY [facility] Stop: 02/18/17 15:59 Last Admin: 12/23/16 08:55 Dose: 1 each Lactulose (Cephulac) 30 gm PO TID [facility] Stop: 02/16/17 20:59 Last Admin: 12/23/16 08:56 Dose: 30 gm Lisinopril (Zestril) 20 mg PO DAILY [facility] Stop: 02/18/17 08:59 Last Admin: 12/23/16 08:55 Dose: 20 mg Lorazepam (Ativan) 1 mg IV Q4H PRN; Protocol PRN Reason: Seizure Stop: 02/16/17 14:43 Last Admin: 12/19/16 16:34 Dose: 1 mg Lorazepam (Ativan) 1 mg PO Q6HR PRN; Protocol PRN Reason: Agitation Stop: 02/18/17 21:29 Last Admin: 12/21/16 11:00 Dose: 1 mg Magnesium Oxide (Mag-Oxide) 400 mg PO DAILY [facility] Stop: 02/18/17 08:59 Last Admin: 12/23/16 08:55 Dose: 400 mg Metformin HCl (Glucophage) 1,000 mg PO BID [facility] Stop: 02/17/17 16:59 Last Admin: 12/23/16 08:54 Dose: 1,000 mg Miscellaneous (Probiotic Screen) 1 ea MC PRN PRN PRN Reason: PROTOCOL Stop: 02/18/17 15:38 Mupirocin (Bactroban Oint) 1 appl TP BID [facility] Stop: 02/18/17 10:59 Last Admin: 12/23/16 09:04 Dose: 1 appl Ondansetron HCl (Zofran) 4 mg IV Q8H PRN PRN Reason: Nausea / Vomiting Stop: 02/16/17 14:43 Pantoprazole Sodium (Protonix) 40 mg PO BID [facility] Stop: 02/16/17 16:59 Last Admin: 12/23/16 08:55 Dose: 40 mg Propranolol HCl (Inderal) 20 mg PO DAILY [facility] Stop: 02/18/17 08:59 Last Admin: 12/23/16 08:54 Dose: 20 mg Rifaximin (Xifaxan) 550 mg PO DAILY [facility] Stop: 02/18/17 08:59 Last Admin: 12/23/16 08:54 Dose: 550 mg Simvastatin (Zocor) 10 mg PO DAILY [facility] PRN Reason: Protocol Stop: 02/18/17 08:59 Last Admin: 12/23/16 08:55 Dose: 10 mg General: Alert HEENT: Atraumatic, PERRLA Abdomen: Soft, Other (non tender, no guard, no rebound) Psych/Mental Status: Mental status NL Assessment/Plan - Assessment Assessment: # Liver cirrhosis, presumed from EtOH # Decompensated by HE # Jaundice HE appears improved. US reviewed and no biliary dilation. Jaundice is likely reflective of chronic alcoholic liver disease - absolute avoidance of EtOH - track LFTs - continue rifaximin and lactulose on dc (at least lactulose) - no ascites on US - no hepatoma on US, due again in 6 months
--- NOTE | 2016-12-23 11:18 | Internal Medicine Prog Note ---
Internal Medicine Subjective - Subjective Service Date: 12/23/16 Patient is:: awake, verbal, agitated, confused Per staff patient has:: tolerating meds, other Internal Medicine Objective - Results Result Diagrams: 12/23/16 05:30 12/23/16 05:30 Recent Labs: Laboratory Last Values WBC 5.1 Th/cmm (4.8-10.8) 12/23/16 05:30 RBC 4.44 Mil/cmm (3.80-5.20) 12/23/16 05:30 Hgb 13.1 gm/dL (12-16) 12/23/16 05:30 Hct 38.9 % (41.0-60) L 12/23/16 05:30 MCV 87.7 fl (81-100) 12/23/16 05:30 MCH 29.5 pg (27.0-31.0) 12/23/16 05:30 MCHC Differential 33.7 pg (28.0-36.0) 12/23/16 05:30 RDW 15.4 % (11.5-20.0) 12/23/16 05:30 Plt Count 87 Th/cmm (150-400) L 12/23/16 05:30 MPV 10.7 fl 12/23/16 05:30 Neutrophils % 64.9 % (40.0-80.0) 12/23/16 05:30 Lymphocytes % 18.9 % (20.0-50.0) L 12/23/16 05:30 Monocytes % 10.2 % (2.0-10.0) H 12/23/16 05:30 Eosinophils % 5.4 % (0.0-5.0) H 12/23/16 05:30 Basophils % 0.6 % (0.0-2.0) 12/23/16 05:30 PT 13.1 SECONDS (9.5-11.5) H 12/20/16 08:35 INR 1.25 (0.5-1.4) 12/20/16 08:35 PTT (Actin FS) 30.1 SECONDS (26.0-38.0) 12/20/16 08:35 Sodium 133 mEq/L (136-145) L 12/23/16 05:30 Potassium 3.7 mEq/L (3.5-5.1) 12/23/16 05:30 Chloride 100 mEq/L (98-107) 12/23/16 05:30 Carbon Dioxide 25.8 mEq/L (21.0-31.0) 12/23/16 05:30 Anion Gap 10.9 (7.0-16.0) 12/23/16 05:30 BUN 11 mg/dL (7-25) 12/23/16 05:30 Creatinine 0.8 mg/dL (0.6-1.2) 12/23/16 05:30 Est GFR ( Amer) TNP 12/23/16 05:30 Est GFR (Non-Af Amer) TNP 12/23/16 05:30 BUN/Creatinine Ratio 13.8 12/23/16 05:30 Glucose 209 mg/dL (70-105) H D 12/23/16 05:30 POC Glucose 328 MG/DL (70 - 105) H 12/23/16 10:10 Hemoglobin A1c % 7.5 % (4.0-6.0) H 12/18/16 13:59 Calcium 9.3 mg/dL (8.6-10.3) 12/23/16 05:30 Total Bilirubin 3.6 mg/dL (0.3-1.0) H 12/22/16 05:55 Direct Bilirubin 0.84 mg/dL (0.0-0.2) H 12/22/16 05:55 AST 45 U/L (13-39) H 12/22/16 05:55 ALT 20 U/L (7-52) 12/22/16 05:55 Alkaline Phosphatase 68 U/L (34-104) 12/22/16 05:55 Ammonia 79 umol/L (16-53) H 12/23/16 05:30 Total Protein 7.1 gm/dL (6.0-8.3) 12/22/16 05:55 Albumin 3.1 gm/dL (3.7-5.3) L 12/22/16 05:55 Globulin 4.0 gm/dL 12/22/16 05:55 Albumin/Globulin Ratio 0.8 (1.0-1.8) L 12/22/16 05:55 Amylase 33 U/L (29-103) 12/18/16 12:32 Lipase 30 U/L (11-82) 12/18/16 12:32 Tumor Marker AFP 5.2 ng/mL (0.0-8.3) 12/20/16 08:35 Urine Source RANDOM 12/18/16 14:50 Urine Color DARK ORANGE 12/18/16 14:50 Urine Clarity SLIGHTLY HAZY (CLEAR) 12/18/16 14:50 Urine pH 5.5 (4.6 - 8.0) 12/18/16 14:50 Ur Specific [place] >= 1.030 (1.005-1.030) 12/18/16 14:50 Urine Protein 100 mg/dL (NEGATIVE) H 12/18/16 14:50 Urine Glucose (UA) NEGATIVE mg/dL (NEGATIVE) 12/18/16 14:50 Urine Ketones TRACE mg/dL (NEGATIVE) 12/18/16 14:50 Urine Blood TRACE (NEGATIVE) 12/18/16 14:50 Urine Nitrate NEGATIVE (NEGATIVE) 12/18/16 14:50 Urine Bilirubin SMALL (NEGATIVE) H 12/18/16 14:50 Urine Urobilinogen 1.0 E.U./dL (0.2 - 1.0) 12/18/16 14:50 Ur Leukocyte Esterase NEGATIVE (NEGATIVE) 12/18/16 14:50 Urine RBC 0-2 /hpf (0-5) 12/18/16 14:50 Urine WBC 2-5 /hpf (0-5) 12/18/16 14:50 Ur Epithelial Cells OCCASIONAL /lpf (FEW) 12/18/16 14:50 Amorphous Sediment MANY URATES (NONE SEEN) 12/18/16 14:50 Urine Bacteria 1+ /hpf (NONE SEEN) H 12/18/16 14:50 Fine Granular Casts 0-2 /lpf (NONE SEEN) H 12/18/16 14:50 Urine Opiates Screen NEGATIVE (NEGATIVE) 12/18/16 14:50 Urine Methadone Screen NEGATIVE (NEGATIVE) 12/18/16 14:50 Ur Barbiturates Screen NEGATIVE (NEGATIVE) 12/18/16 14:50 Ur Tricyclics Screen NEGATIVE (NEGATIVE) 12/18/16 14:50 Ur Phencyclidine Scrn NEGATIVE (NEGATIVE) 12/18/16 14:50 Amphetamines Screen NEGATIVE (NEGATIVE) 12/18/16 14:50 U Methamphetamines Scrn NEGATIVE (NEGATIVE) 12/18/16 14:50 U Benzodiazepines Scrn NEGATIVE (NEGATIVE) 12/18/16 14:50 U Cocaine Metab Screen NEGATIVE (NEGATIVE) 12/18/16 14:50 U Cannabinoids Screen NEGATIVE (NEGATIVE) 12/18/16 14:50 - Physical Exam Vitals and I&O: Vital Signs Temp 97.1 F 12/23/16 08:00 Pulse 65 12/23/16 08:55 Resp 16 12/23/16 08:00 BP 156/57 12/23/16 08:55 Pulse Ox 98 12/23/16 08:00 Intake & Output 12/22/16 12/23/16 12/23/16 18:59 06:59 18:59 Intake Total 350 100 Balance 350 100 Weight (lbs) 240 lb 238 lb 8 oz Intake: Oral 350 100 Other: # Voids 3 2 # Bowel Movements 1 0 Active Medications: Current Medications Acetaminophen (Tylenol) 650 mg PO Q4H PRN PRN Reason: Pain Or Fever above 101 Stop: 02/16/17 14:43 Albuterol Sulfate (Albuterol 2.5mg/3ml Neb Ud) 2.5 mg HHN QIDRT [facility] Stop: 02/16/17 14:59 Last Admin: 12/23/16 07:35 Dose: 2.5 mg Calcium/Vitamin D (Oscal W/Vitamin D) 1 tab PO DAILY [facility] Stop: 02/18/17 08:59 Last Admin: 12/23/16 08:55 Dose: 1 tab Guaifenesin (Robitussin) 200 mg PO Q4HR PRN PRN Reason: Cough or Congestion Stop: 02/16/17 14:43 Levofloxacin (Levaquin Pb) 500 mg in 100 mls @ 100 mls/hr IV Q24HR [facility] Stop: 02/16/17 16:29 Last Admin: 12/22/16 16:50 Dose: Not Given Sodium Chloride (Nacl 0.9%) 1,000 mls @ 50 mls/hr IV .Q20H [facility] Stop: 02/17/17 13:14 Last Infusion: 12/20/16 18:41 Dose: Infused Insulin Aspart (Novolog) 0 units SUBQ ACHS [facility] PRN Reason: Protocol Stop: 02/17/17 16:29 Last Admin: 12/23/16 06:36 Dose: 2 units Insulin Detemir (Levemir Insulin) 26 units SUBQ QAM [facility] PRN Reason: Protocol Stop: 02/18/17 08:59 Last Admin: 12/23/16 10:13 Dose: 26 unit Ipratropium [place] (Atrovent Neb 0.5mg/2.5ml) 0.5 mg IH QIDRT [facility] Stop: 02/16/17 14:59 Last Admin: 12/23/16 07:35 Dose: 0.5 mg Lactobacillus Rhamnosus (Culturelle) 1 each PO DAILY [facility] Stop: 02/18/17 15:59 Last Admin: 12/23/16 08:55 Dose: 1 each Lactulose (Cephulac) 30 gm PO TID [facility] Stop: 02/16/17 20:59 Last Admin: 12/23/16 08:56 Dose: 30 gm Lisinopril (Zestril) 20 mg PO DAILY [facility] Stop: 02/18/17 08:59 Last Admin: 12/23/16 08:55 Dose: 20 mg Lorazepam (Ativan) 1 mg IV Q4H PRN; Protocol PRN Reason: Seizure Stop: 02/16/17 14:43 Last Admin: 12/19/16 16:34 Dose: 1 mg Lorazepam (Ativan) 1 mg PO Q6HR PRN; Protocol PRN Reason: Agitation Stop: 02/18/17 21:29 Last Admin: 12/21/16 11:00 Dose: 1 mg Magnesium Oxide (Mag-Oxide) 400 mg PO DAILY [facility] Stop: 02/18/17 08:59 Last Admin: 12/23/16 08:55 Dose: 400 mg Metformin HCl (Glucophage) 1,000 mg PO BID [facility] Stop: 02/17/17 16:59 Last Admin: 12/23/16 08:54 Dose: 1,000 mg Miscellaneous (Probiotic Screen) 1 ea MC PRN PRN PRN Reason: PROTOCOL Stop: 02/18/17 15:38 Mupirocin (Bactroban Oint) 1 appl TP BID [facility] Stop: 02/18/17 10:59 Last Admin: 12/23/16 09:04 Dose: 1 appl Ondansetron HCl (Zofran) 4 mg IV Q8H PRN PRN Reason: Nausea / Vomiting Stop: 02/16/17 14:43 Pantoprazole Sodium (Protonix) 40 mg PO BID [facility] Stop: 02/16/17 16:59 Last Admin: 12/23/16 08:55 Dose: 40 mg Propranolol HCl (Inderal) 20 mg PO DAILY [facility] Stop: 02/18/17 08:59 Last Admin: 12/23/16 08:54 Dose: 20 mg Rifaximin (Xifaxan) 550 mg PO DAILY [facility] Stop: 02/18/17 08:59 Last Admin: 12/23/16 08:54 Dose: 550 mg Simvastatin (Zocor) 10 mg PO DAILY [facility] PRN Reason: Protocol Stop: 02/18/17 08:59 Last Admin: 12/23/16 08:55 Dose: 10 mg General: alert, other (confused) HEENT: NC/AT Neck: Supple Lungs: CTAB Cardiovascular: RRR, Normal S1, Normal S2, without murmur Abdomen: soft, non-tender, non-distended, positive bowel sound Neurological: no change Internal Medicine Assmt/Plan - Assessment Assessment: ALOC Hepatic Encephalopathy DM-2 HYPONATREMIA ACUTE UTI MILD PROTEIN CALORIE MALNUTRITION 5150 STATUS HX CIRROHOSIS ALCOHOL ABUSE - Plan Plan: [facility] arranging SNF placement monitor ammonia level ivf for hydration am labs fall precautions monitor electrolyte levels continue current plan of care Nutritional Asmnt/Malnutr-PDOC - Dietary Evaluation Malnutrition Findings (Please click <Entered> for more info): Nutritional Asmnt/Malnutrition Start: 12/19/16 11: 46 Text: Status: Complete Freq: Document 12/19/16 11:46 LCHENG (Rec: 12/19/16 12:15 LCHENG [id number]) Nutritional Asmnt/Malnutrition Patient General Information Nutritional Screening High Risk Consult Diagnosis ALOC, hepatic encephalopathy, DM, acute UTI Pertinent Medical Hx/Surgical Hx DM, liver cirrhosis Subjective Information Consult for high blood glucose received today. Pt is a 71yo female admitted for increased confusion. Pt seen resing in bed, alert and talktive. Sitter at bedside. Per H&P, pt is a chronic alcoholic. Pt had breakfast this morning, requested diebetic food which is her usual diet. Pt appeared obese, no fat/muscle wasting noted. Pt reported no wt change recently. PO intake 25% of dinner last night. Current Diet Order/ Nutrition Support Low sodium 2gm, low protein Pertinent Medications D5, Levauin Pertinent Labs POC 204-316 since adm 12/18 Na 132L, K 4.1, Cl 99. BUN 17, Cr 0.9, Glu 240, AST 50 H, ALT 27, Ammonia 107 H, Alb 3.4 L Nutritional Hx/Data Height 5 ft 4 in Height (Calculated Centimeters) 162.6 Current Weight (lbs) 300 lb Weight (Calculated Kilograms) 136.1 Weight (Calculated Grams) 287685.7 Usual body Weight (lbs) 240 % Usual Body Weight 125 [place] Body Weight 120 % [place] Body Weight 250 Body Mass Index (BMI) 51.5 Weight Status Morbidly Obese GI Symptoms GI Symptoms None Difficult in: None Food Allergies No Usual diet at home pt reported she followed diebetic diet Skin Integrity/Comment: BILATERAL LOWER EXTREMITIES DRYNESS, BLACK DISCOLORATION ON LOWER ABDOMEN Estimated Nutritional Goals BEE in Kcals: Adj wt of IBW Calories/Kcals/Kg 25-30 Kcals Calculated 3851-9330 (based on adj wt 165lb/75kg) Protein: Adj wt of IBW Protein g/k.8 Protein Calculated 60 Fluid: ml 1875-2250ml (1ml/kcal) Nutritional Problem 2. Problem Problem obesity Etiology inbalenced energy intake Signs/Symptoms: BMI > 50 1. Problem Problem altered nutrition related lab values Etiology hx of DM Signs/Symptoms: Glu 240, POC 204-316 Malnutrition Alert Protein-Calorie Malnutrition N/A Is there a minimum of two criteria No selected? Query Text:Check all the applicable criteria. A minimum of two criteria are recommended for diagnosis of either severe or non-severe malnutrition. Intervention/Recommendation Comments 1. Recommend CCHO diet as pt requested and hx of DM, made aware of RN, notified dietetic assistant to provide CCHO, low sodium/protein diet from lunch . 2. Provided nutrition education regarding carb control in meals. Gave carb counting education materials to pt. 3. Monitor PO intake, glucose, labs, skin, wt weekly 4. follow up as high risk in 2 -3 days, 12/21-12/22 Expected Outcomes/Goals Expected Outcomes/Goals 1. PO intake to meet at least 75% of nutritional needs 2. glucose level, labs to improve 3. wt to remain stable 4. skin to improve
[2016-12-23] MEDS: Levofloxacin 500mg/100mL 500 MG/100 ML BAG IV SCH (16:43)
--- NOTE | 2016-12-24 02:02 | Progress Notes ---
DATE: 12/23/2016 Chart reviewed and the patient interviewed. Also, discussed the patient's condition with the staff and reviewed records and labs. Also discussed condition with lead case manager. The patient's affect is brighter. The patient is less depressed. She is interacting appropriately with peers and others. She also denies any thoughts of suicide or homicide. The patient also is looking forward to be discharged. finance effectiveness manager is still trying to help with the patient's to find a place for the patient to live, but so far no luck and she continues to placement for the patient. From psychiatric point of view, the patient can be discharged with outpatient followup. JOB# [id number]
[2016-12-24] MEDS: INSULIN ASPART, RECOMBINANT 100 UNITS/ML SUBQ SCH ×4 (06:50→22:31)
[2016-12-24] MEDS: Ipratropium Neb 0.5 mg/2.5 mL UD IH SCH ×4 (06:54→19:55)
[2016-12-24] MEDS: Albuterol Nebulizer 2.5mg/3mL HHN SCH ×4 (06:54→19:55)
[2016-12-24] MEDS: Lactulose 10 Gm/15 mL 30mL UDC PO SCH (08:39)
[2016-12-24] MEDS: Calcium Carb/Vit D 500 mg/200 U Tab PO SCH (08:39)
[2016-12-24] MEDS: Lactobacillus Rhamnosus 10 Billion CFU Capsule PO SCH (08:39)
[2016-12-24] MEDS: Pantoprazole 40 mg EC Tab PO SCH ×2 (08:39→16:49)
[2016-12-24] MEDS: Insulin Detemir 100 units/mL 10mL Vial SUBQ SCH (08:50)
--- NOTE | 2016-12-24 09:09 | GI Progress Note ---
Subjective - Review of Systems Subjective: STILL CONFUSED Objective - Results Result Diagrams: 12/23/16 05:30 12/23/16 05:30 Recent Labs: Laboratory Last Values WBC 5.1 Th/cmm (4.8-10.8) 12/23/16 05:30 RBC 4.44 Mil/cmm (3.80-5.20) 12/23/16 05:30 Hgb 13.1 gm/dL (12-16) 12/23/16 05:30 Hct 38.9 % (41.0-60) L 12/23/16 05:30 MCV 87.7 fl (81-100) 12/23/16 05:30 MCH 29.5 pg (27.0-31.0) 12/23/16 05:30 MCHC Differential 33.7 pg (28.0-36.0) 12/23/16 05:30 RDW 15.4 % (11.5-20.0) 12/23/16 05:30 Plt Count 87 Th/cmm (150-400) L 12/23/16 05:30 MPV 10.7 fl 12/23/16 05:30 Neutrophils % 64.9 % (40.0-80.0) 12/23/16 05:30 Lymphocytes % 18.9 % (20.0-50.0) L 12/23/16 05:30 Monocytes % 10.2 % (2.0-10.0) H 12/23/16 05:30 Eosinophils % 5.4 % (0.0-5.0) H 12/23/16 05:30 Basophils % 0.6 % (0.0-2.0) 12/23/16 05:30 PT 13.1 SECONDS (9.5-11.5) H 12/20/16 08:35 INR 1.25 (0.5-1.4) 12/20/16 08:35 PTT (Actin FS) 30.1 SECONDS (26.0-38.0) 12/20/16 08:35 Sodium 133 mEq/L (136-145) L 12/23/16 05:30 Potassium 3.7 mEq/L (3.5-5.1) 12/23/16 05:30 Chloride 100 mEq/L (98-107) 12/23/16 05:30 Carbon Dioxide 25.8 mEq/L (21.0-31.0) 12/23/16 05:30 Anion Gap 10.9 (7.0-16.0) 12/23/16 05:30 BUN 11 mg/dL (7-25) 12/23/16 05:30 Creatinine 0.8 mg/dL (0.6-1.2) 12/23/16 05:30 Est GFR ( Amer) TNP 12/23/16 05:30 Est GFR (Non-Af Amer) TNP 12/23/16 05:30 BUN/Creatinine Ratio 13.8 12/23/16 05:30 Glucose 209 mg/dL (70-105) H D 12/23/16 05:30 POC Glucose 218 MG/DL (70 - 105) H 12/24/16 06:38 Hemoglobin A1c % 7.5 % (4.0-6.0) H 12/18/16 13:59 Calcium 9.3 mg/dL (8.6-10.3) 12/23/16 05:30 Total Bilirubin 3.6 mg/dL (0.3-1.0) H 12/22/16 05:55 Direct Bilirubin 0.84 mg/dL (0.0-0.2) H 12/22/16 05:55 AST 45 U/L (13-39) H 12/22/16 05:55 ALT 20 U/L (7-52) 12/22/16 05:55 Alkaline Phosphatase 68 U/L (34-104) 12/22/16 05:55 Ammonia 79 umol/L (16-53) H 12/23/16 05:30 Total Protein 7.1 gm/dL (6.0-8.3) 12/22/16 05:55 Albumin 3.1 gm/dL (3.7-5.3) L 12/22/16 05:55 Globulin 4.0 gm/dL 12/22/16 05:55 Albumin/Globulin Ratio 0.8 (1.0-1.8) L 12/22/16 05:55 Amylase 33 U/L (29-103) 12/18/16 12:32 Lipase 30 U/L (11-82) 12/18/16 12:32 Tumor Marker AFP 5.2 ng/mL (0.0-8.3) 12/20/16 08:35 Urine Source RANDOM 12/18/16 14:50 Urine Color DARK ORANGE 12/18/16 14:50 Urine Clarity SLIGHTLY HAZY (CLEAR) 12/18/16 14:50 Urine pH 5.5 (4.6 - 8.0) 12/18/16 14:50 Ur Specific [place] >= 1.030 (1.005-1.030) 12/18/16 14:50 Urine Protein 100 mg/dL (NEGATIVE) H 12/18/16 14:50 Urine Glucose (UA) NEGATIVE mg/dL (NEGATIVE) 12/18/16 14:50 Urine Ketones TRACE mg/dL (NEGATIVE) 12/18/16 14:50 Urine Blood TRACE (NEGATIVE) 12/18/16 14:50 Urine Nitrate NEGATIVE (NEGATIVE) 12/18/16 14:50 Urine Bilirubin SMALL (NEGATIVE) H 12/18/16 14:50 Urine Urobilinogen 1.0 E.U./dL (0.2 - 1.0) 12/18/16 14:50 Ur Leukocyte Esterase NEGATIVE (NEGATIVE) 12/18/16 14:50 Urine RBC 0-2 /hpf (0-5) 12/18/16 14:50 Urine WBC 2-5 /hpf (0-5) 12/18/16 14:50 Ur Epithelial Cells OCCASIONAL /lpf (FEW) 12/18/16 14:50 Amorphous Sediment MANY URATES (NONE SEEN) 12/18/16 14:50 Urine Bacteria 1+ /hpf (NONE SEEN) H 12/18/16 14:50 Fine Granular Casts 0-2 /lpf (NONE SEEN) H 12/18/16 14:50 Urine Opiates Screen NEGATIVE (NEGATIVE) 12/18/16 14:50 Urine Methadone Screen NEGATIVE (NEGATIVE) 12/18/16 14:50 Ur Barbiturates Screen NEGATIVE (NEGATIVE) 12/18/16 14:50 Ur Tricyclics Screen NEGATIVE (NEGATIVE) 12/18/16 14:50 Ur Phencyclidine Scrn NEGATIVE (NEGATIVE) 12/18/16 14:50 Amphetamines Screen NEGATIVE (NEGATIVE) 12/18/16 14:50 U Methamphetamines Scrn NEGATIVE (NEGATIVE) 12/18/16 14:50 U Benzodiazepines Scrn NEGATIVE (NEGATIVE) 12/18/16 14:50 U Cocaine Metab Screen NEGATIVE (NEGATIVE) 12/18/16 14:50 U Cannabinoids Screen NEGATIVE (NEGATIVE) 12/18/16 14:50 - Physical Exam Vitals and I&O: Vital Signs Temp 98.0 F 12/24/16 04:00 Pulse 66 12/24/16 08:40 Resp 12 12/24/16 07:00 BP 140/49 12/24/16 08:40 Pulse Ox 96 12/24/16 07:00 Intake & Output 12/23/16 12/24/16 12/24/16 18:59 06:59 18:59 Intake Total 1020 550 Balance 1020 550 Weight (lbs) 108.182 kg 108.409 kg Intake: Oral 1020 550 Other: # Voids 4 3 # Bowel Movements 2 0 Active Medications: Current Medications Acetaminophen (Tylenol) 650 mg PO Q4H PRN PRN Reason: Pain Or Fever above 101 Stop: 02/16/17 14:43 Albuterol Sulfate (Albuterol 2.5mg/3ml Neb Ud) 2.5 mg HHN QIDRT [facility] Stop: 02/16/17 14:59 Last Admin: 12/24/16 06:54 Dose: 2.5 mg Calcium/Vitamin D (Oscal W/Vitamin D) 1 tab PO DAILY [facility] Stop: 02/18/17 08:59 Last Admin: 12/24/16 08:39 Dose: 1 tab Guaifenesin (Robitussin) 200 mg PO Q4HR PRN PRN Reason: Cough or Congestion Stop: 02/16/17 14:43 Sodium Chloride (Nacl 0.9%) 1,000 mls @ 50 mls/hr IV .Q20H [facility] Stop: 02/17/17 13:14 Last Infusion: 12/20/16 18:41 Dose: Infused Insulin Aspart (Novolog) 0 units SUBQ ACHS [facility] PRN Reason: Protocol Stop: 02/17/17 16:29 Last Admin: 12/24/16 06:50 Dose: 2 units Insulin Detemir (Levemir Insulin) 26 units SUBQ QAM [facility] PRN Reason: Protocol Stop: 02/18/17 08:59 Last Admin: 12/23/16 10:13 Dose: 26 unit Ipratropium [place] (Atrovent Neb 0.5mg/2.5ml) 0.5 mg IH QIDRT [facility] Stop: 02/16/17 14:59 Last Admin: 12/24/16 06:54 Dose: 0.5 mg Lactobacillus Rhamnosus (Culturelle) 1 each PO DAILY [facility] Stop: 02/18/17 15:59 Last Admin: 12/24/16 08:39 Dose: 1 each Lactulose (Cephulac) 30 gm PO TID [facility] Stop: 02/16/17 20:59 Last Admin: 12/24/16 08:39 Dose: 30 gm Lisinopril (Zestril) 20 mg PO DAILY [facility] Stop: 02/18/17 08:59 Last Admin: 12/24/16 08:40 Dose: 20 mg Lorazepam (Ativan) 1 mg IV Q4H PRN; Protocol PRN Reason: Seizure Stop: 02/16/17 14:43 Last Admin: 12/19/16 16:34 Dose: 1 mg Lorazepam (Ativan) 1 mg PO Q6HR PRN; Protocol PRN Reason: Agitation Stop: 02/18/17 21:29 Last Admin: 12/21/16 11:00 Dose: 1 mg Magnesium Oxide (Mag-Oxide) 400 mg PO DAILY [facility] Stop: 02/18/17 08:59 Last Admin: 12/24/16 08:39 Dose: 400 mg Metformin HCl (Glucophage) 1,000 mg PO BID [facility] Stop: 02/17/17 16:59 Last Admin: 12/24/16 08:39 Dose: 1,000 mg Miscellaneous (Probiotic Screen) 1 ea MC PRN PRN PRN Reason: PROTOCOL Stop: 02/18/17 15:38 Mupirocin (Bactroban Oint) 1 appl TP BID [facility] Stop: 02/18/17 10:59 Last Admin: 12/23/16 17:34 Dose: 1 appl Ondansetron HCl (Zofran) 4 mg IV Q8H PRN PRN Reason: Nausea / Vomiting Stop: 02/16/17 14:43 Pantoprazole Sodium (Protonix) 40 mg PO BID [facility] Stop: 02/16/17 16:59 Last Admin: 12/24/16 08:39 Dose: 40 mg Propranolol HCl (Inderal) 20 mg PO DAILY [facility] Stop: 02/18/17 08:59 Last Admin: 12/24/16 08:40 Dose: 20 mg Rifaximin (Xifaxan) 550 mg PO DAILY [facility] Stop: 02/18/17 08:59 Last Admin: 12/24/16 08:44 Dose: 550 mg Simvastatin (Zocor) 10 mg PO DAILY [facility] PRN Reason: Protocol Stop: 02/18/17 08:59 Last Admin: 12/24/16 08:39 Dose: 10 mg General: Alert HEENT: Atraumatic, PERRLA Abdomen: Soft, Other (non tender, no guard, no rebound) Psych/Mental Status: Mental status NL Assessment/Plan - Assessment Assessment: 71 YO FEMALE WITH CIRRHOSIS AND HEPATIC ENCEPHALOPATHY ELEVATED AMMONIA AND LFTS SLIM SHOWED [place]ALL[place]ONES NORMAL HGB 1.CONT LACTULOSE AND XIFAXAN 2.HIDA 3.CONT SUPP CARE
--- NOTE | 2016-12-24 13:49 | Internal Medicine Prog Note ---
Internal Medicine Subjective - Subjective Patient seen and examined:: with staff, chart reviewed, other (goof bm) Patient is:: awake, verbal, interactive, agitated, confused Patient Complaints of:: diarrhea Per staff patient has:: no adverse event, no episodes of fall, eating well, agitated, noncompliant, tolerating meds, refusing care, other Internal Medicine Objective - Results Result Diagrams: 12/23/16 05:30 12/23/16 05:30 Recent Labs: Laboratory Last Values WBC 5.1 Th/cmm (4.8-10.8) 12/23/16 05:30 RBC 4.44 Mil/cmm (3.80-5.20) 12/23/16 05:30 Hgb 13.1 gm/dL (12-16) 12/23/16 05:30 Hct 38.9 % (41.0-60) L 12/23/16 05:30 MCV 87.7 fl (81-100) 12/23/16 05:30 MCH 29.5 pg (27.0-31.0) 12/23/16 05:30 MCHC Differential 33.7 pg (28.0-36.0) 12/23/16 05:30 RDW 15.4 % (11.5-20.0) 12/23/16 05:30 Plt Count 87 Th/cmm (150-400) L 12/23/16 05:30 MPV 10.7 fl 12/23/16 05:30 Neutrophils % 64.9 % (40.0-80.0) 12/23/16 05:30 Lymphocytes % 18.9 % (20.0-50.0) L 12/23/16 05:30 Monocytes % 10.2 % (2.0-10.0) H 12/23/16 05:30 Eosinophils % 5.4 % (0.0-5.0) H 12/23/16 05:30 Basophils % 0.6 % (0.0-2.0) 12/23/16 05:30 PT 13.1 SECONDS (9.5-11.5) H 12/20/16 08:35 INR 1.25 (0.5-1.4) 12/20/16 08:35 PTT (Actin FS) 30.1 SECONDS (26.0-38.0) 12/20/16 08:35 Sodium 133 mEq/L (136-145) L 12/23/16 05:30 Potassium 3.7 mEq/L (3.5-5.1) 12/23/16 05:30 Chloride 100 mEq/L (98-107) 12/23/16 05:30 Carbon Dioxide 25.8 mEq/L (21.0-31.0) 12/23/16 05:30 Anion Gap 10.9 (7.0-16.0) 12/23/16 05:30 BUN 11 mg/dL (7-25) 12/23/16 05:30 Creatinine 0.8 mg/dL (0.6-1.2) 12/23/16 05:30 Est GFR ( Amer) TNP 12/23/16 05:30 Est GFR (Non-Af Amer) TNP 12/23/16 05:30 BUN/Creatinine Ratio 13.8 12/23/16 05:30 Glucose 209 mg/dL (70-105) H D 12/23/16 05:30 POC Glucose 241 MG/DL (70 - 105) H 12/24/16 11:33 Hemoglobin A1c % 7.5 % (4.0-6.0) H 12/18/16 13:59 Calcium 9.3 mg/dL (8.6-10.3) 12/23/16 05:30 Total Bilirubin 3.6 mg/dL (0.3-1.0) H 12/22/16 05:55 Direct Bilirubin 0.84 mg/dL (0.0-0.2) H 12/22/16 05:55 AST 45 U/L (13-39) H 12/22/16 05:55 ALT 20 U/L (7-52) 12/22/16 05:55 Alkaline Phosphatase 68 U/L (34-104) 12/22/16 05:55 Ammonia 79 umol/L (16-53) H 12/23/16 05:30 Total Protein 7.1 gm/dL (6.0-8.3) 12/22/16 05:55 Albumin 3.1 gm/dL (3.7-5.3) L 12/22/16 05:55 Globulin 4.0 gm/dL 12/22/16 05:55 Albumin/Globulin Ratio 0.8 (1.0-1.8) L 12/22/16 05:55 Amylase 33 U/L (29-103) 12/18/16 12:32 Lipase 30 U/L (11-82) 12/18/16 12:32 Tumor Marker AFP 5.2 ng/mL (0.0-8.3) 12/20/16 08:35 Urine Source RANDOM 12/18/16 14:50 Urine Color DARK ORANGE 12/18/16 14:50 Urine Clarity SLIGHTLY HAZY (CLEAR) 12/18/16 14:50 Urine pH 5.5 (4.6 - 8.0) 12/18/16 14:50 Ur Specific [place] >= 1.030 (1.005-1.030) 12/18/16 14:50 Urine Protein 100 mg/dL (NEGATIVE) H 12/18/16 14:50 Urine Glucose (UA) NEGATIVE mg/dL (NEGATIVE) 12/18/16 14:50 Urine Ketones TRACE mg/dL (NEGATIVE) 12/18/16 14:50 Urine Blood TRACE (NEGATIVE) 12/18/16 14:50 Urine Nitrate NEGATIVE (NEGATIVE) 12/18/16 14:50 Urine Bilirubin SMALL (NEGATIVE) H 12/18/16 14:50 Urine Urobilinogen 1.0 E.U./dL (0.2 - 1.0) 12/18/16 14:50 Ur Leukocyte Esterase NEGATIVE (NEGATIVE) 12/18/16 14:50 Urine RBC 0-2 /hpf (0-5) 12/18/16 14:50 Urine WBC 2-5 /hpf (0-5) 12/18/16 14:50 Ur Epithelial Cells OCCASIONAL /lpf (FEW) 12/18/16 14:50 Amorphous Sediment MANY URATES (NONE SEEN) 12/18/16 14:50 Urine Bacteria 1+ /hpf (NONE SEEN) H 12/18/16 14:50 Fine Granular Casts 0-2 /lpf (NONE SEEN) H 12/18/16 14:50 Urine Opiates Screen NEGATIVE (NEGATIVE) 12/18/16 14:50 Urine Methadone Screen NEGATIVE (NEGATIVE) 12/18/16 14:50 Ur Barbiturates Screen NEGATIVE (NEGATIVE) 12/18/16 14:50 Ur Tricyclics Screen NEGATIVE (NEGATIVE) 12/18/16 14:50 Ur Phencyclidine Scrn NEGATIVE (NEGATIVE) 12/18/16 14:50 Amphetamines Screen NEGATIVE (NEGATIVE) 12/18/16 14:50 U Methamphetamines Scrn NEGATIVE (NEGATIVE) 12/18/16 14:50 U Benzodiazepines Scrn NEGATIVE (NEGATIVE) 12/18/16 14:50 U Cocaine Metab Screen NEGATIVE (NEGATIVE) 12/18/16 14:50 U Cannabinoids Screen NEGATIVE (NEGATIVE) 12/18/16 14:50 - Physical Exam Vitals and I&O: Vital Signs Temp 96.8 F 12/24/16 08:00 Pulse 71 12/24/16 11:05 Resp 14 12/24/16 11:05 BP 140/49 12/24/16 08:40 Pulse Ox 96 12/24/16 11:05 Intake & Output 12/23/16 12/24/16 12/24/16 18:59 06:59 18:59 Intake Total 1020 550 Balance 1020 550 Weight (lbs) 108.182 kg 108.409 kg Intake: Oral 1020 550 Other: # Voids 4 3 # Bowel Movements 2 0 Active Medications: Current Medications Acetaminophen (Tylenol) 650 mg PO Q4H PRN PRN Reason: Pain Or Fever above 101 Stop: 02/16/17 14:43 Albuterol Sulfate (Albuterol 2.5mg/3ml Neb Ud) 2.5 mg HHN QIDRT [facility] Stop: 02/16/17 14:59 Last Admin: 12/24/16 11:03 Dose: 2.5 mg Calcium/Vitamin D (Oscal W/Vitamin D) 1 tab PO DAILY [facility] Stop: 02/18/17 08:59 Last Admin: 12/24/16 08:39 Dose: 1 tab Guaifenesin (Robitussin) 200 mg PO Q4HR PRN PRN Reason: Cough or Congestion Stop: 02/16/17 14:43 Sodium Chloride (Nacl 0.9%) 1,000 mls @ 50 mls/hr IV .Q20H [facility] Stop: 02/17/17 13:14 Last Infusion: 12/20/16 18:41 Dose: Infused Insulin Aspart (Novolog) 0 units SUBQ ACHS [facility] PRN Reason: Protocol Stop: 02/17/17 16:29 Last Admin: 12/24/16 12:34 Dose: 2 units Insulin Detemir (Levemir Insulin) 26 units SUBQ QAM [facility] PRN Reason: Protocol Stop: 02/18/17 08:59 Last Admin: 12/24/16 08:50 Dose: 26 unit Ipratropium [place] (Atrovent Neb 0.5mg/2.5ml) 0.5 mg IH QIDRT [facility] Stop: 02/16/17 14:59 Last Admin: 12/24/16 11:03 Dose: 0.5 mg Lactobacillus Rhamnosus (Culturelle) 1 each PO DAILY [facility] Stop: 02/18/17 15:59 Last Admin: 12/24/16 08:39 Dose: 1 each Lactulose (Cephulac) 30 gm PO BID [facility] Stop: 02/22/17 16:59 Lisinopril (Zestril) 20 mg PO DAILY [facility] Stop: 02/18/17 08:59 Last Admin: 12/24/16 08:40 Dose: 20 mg Lorazepam (Ativan) 1 mg IV Q4H PRN; Protocol PRN Reason: Seizure Stop: 02/16/17 14:43 Last Admin: 12/19/16 16:34 Dose: 1 mg Lorazepam (Ativan) 1 mg PO Q6HR PRN; Protocol PRN Reason: Agitation Stop: 02/18/17 21:29 Last Admin: 12/21/16 11:00 Dose: 1 mg Magnesium Oxide (Mag-Oxide) 400 mg PO DAILY [facility] Stop: 02/18/17 08:59 Last Admin: 12/24/16 08:39 Dose: 400 mg Metformin HCl (Glucophage) 1,000 mg PO BID [facility] Stop: 02/17/17 16:59 Last Admin: 12/24/16 08:39 Dose: 1,000 mg Miscellaneous (Probiotic Screen) 1 ea MC PRN PRN PRN Reason: PROTOCOL Stop: 02/18/17 15:38 Mupirocin (Bactroban Oint) 1 appl TP BID [facility] Stop: 02/18/17 10:59 Last Admin: 12/24/16 08:51 Dose: 1 appl Ondansetron HCl (Zofran) 4 mg IV Q8H PRN PRN Reason: Nausea / Vomiting Stop: 02/16/17 14:43 Pantoprazole Sodium (Protonix) 40 mg PO BID [facility] Stop: 02/16/17 16:59 Last Admin: 12/24/16 08:39 Dose: 40 mg Propranolol HCl (Inderal) 20 mg PO DAILY [facility] Stop: 02/18/17 08:59 Last Admin: 12/24/16 08:40 Dose: 20 mg Rifaximin (Xifaxan) 550 mg PO DAILY [facility] Stop: 02/18/17 08:59 Last Admin: 12/24/16 08:44 Dose: 550 mg Simvastatin (Zocor) 10 mg PO DAILY [facility] PRN Reason: Protocol Stop: 02/18/17 08:59 Last Admin: 12/24/16 08:39 Dose: 10 mg General: alert, other (confused) HEENT: NC/AT Neck: Supple Lungs: CTAB Cardiovascular: RRR, Normal S1, Normal S2, without murmur Abdomen: soft, non-tender, non-distended, positive bowel sound Neurological: no change Internal Medicine Assmt/Plan - Assessment Assessment: ALOC Hepatic Encephalopathy DM-2 HYPONATREMIA ACUTE UTI MILD PROTEIN CALORIE MALNUTRITION 5150 STATUS HX CIRROHOSIS ALCOHOL ABUSE - Plan Plan: - Plan Plan: [facility] arranging SNF placement monitor ammonia level ivf for hydration am labs fall precautions monitor electrolyte levels continue current plan of care Nutritional Asmnt/Malnutr-PDOC - Dietary Evaluation Malnutrition Findings (Please click <Entered> for more info): Nutritional Asmnt/Malnutrition Start: 12/19/16 11: 46 Text: Status: Complete Freq: Document 12/19/16 11:46 LCHENG (Rec: 12/19/16 12:15 LCDARONG [id number]) Nutritional Asmnt/Malnutrition Patient General Information Nutritional Screening High Risk Consult Diagnosis ALOC, hepatic encephalopathy, DM, acute UTI Pertinent Medical Hx/Surgical Hx DM, liver cirrhosis Subjective Information Consult for high blood glucose received today. Pt is a 71yo female admitted for increased confusion. Pt seen resing in bed, alert and talktive. Sitter at bedside. Per H&P, pt is a chronic alcoholic. Pt had breakfast this morning, requested diebetic food which is her usual diet. Pt appeared obese, no fat/muscle wasting noted. Pt reported no wt change recently. PO intake 25% of dinner last night. Current Diet Order/ Nutrition Support Low sodium 2gm, low protein Pertinent Medications D5, Levauin Pertinent Labs POC 204-316 since adm 12/18 Na 132L, K 4.1, Cl 99. BUN 17, Cr 0.9, Glu 240, AST 50 H, ALT 27, Ammonia 107 H, Alb 3.4 L Nutritional Hx/Data Height 1.63 m Height (Calculated Centimeters) 162.6 Current Weight (lbs) 136.078 kg Weight (Calculated Kilograms) 136.1 Weight (Calculated Grams) 093695.7 Usual body Weight (lbs) 240 % Usual Body Weight 125 [place] Body Weight 120 % [place] Body Weight 250 Body Mass Index (BMI) 51.5 Weight Status Morbidly Obese GI Symptoms GI Symptoms None Difficult in: None Food Allergies No Usual diet at home pt reported she followed diebetic diet Skin Integrity/Comment: BILATERAL LOWER EXTREMITIES DRYNESS, BLACK DISCOLORATION ON LOWER ABDOMEN Estimated Nutritional Goals BEE in Kcals: Adj wt of IBW Calories/Kcals/Kg 25-30 Kcals Calculated [id number] (based on adj wt 165lb/75kg) Protein: Adj wt of IBW Protein g/k.8 Protein Calculated 60 Fluid: ml 1875-2250ml (1ml/kcal) Nutritional Problem 2. Problem Problem obesity Etiology inbalenced energy intake Signs/Symptoms: BMI > 50 1. Problem Problem altered nutrition related lab values Etiology hx of DM Signs/Symptoms: Glu 240, POC 204-316 Malnutrition Alert Protein-Calorie Malnutrition N/A Is there a minimum of two criteria No selected? Query Text:Check all the applicable criteria. A minimum of two criteria are recommended for diagnosis of either severe or non-severe malnutrition. Intervention/Recommendation Comments 1. Recommend CCHO diet as pt requested and hx of DM, made aware of RN, notified dietary cook to provide CCHO, low sodium/protein diet from lunch . 2. Provided nutrition education regarding carb control in meals. Gave carb counting education materials to pt. 3. Monitor PO intake, glucose, labs, skin, wt weekly 4. follow up as high risk in 2 -3 days, 12/21-12/22 Expected Outcomes/Goals Expected Outcomes/Goals 1. PO intake to meet at least 75% of nutritional needs 2. glucose level, labs to improve 3. wt to remain stable 4. skin to improve
[2016-12-24] MEDS ORDERED: Lactulose 10 Gm/15 mL 30mL UDC PO SCH (17:00)
--- NOTE | 2016-12-24 23:54 | Progress Notes ---
DATE: SUBJECTIVE: Chart reviewed and the patient interviewed. Also discussed the patient's condition with the staff and reviewed records and labs. The patient is calm and she is anxious. The patient is cooperative with her treatment. She denies any thoughts of suicide or homicide. She is also compliant with taking her medications. ASSESSMENT: The patient is less agitated and not suicidal, and less psychotic. TREATMENT PLAN: Continue same medications and the patient can be treated in lower level of care from the psychiatric point of view. [facility]# [id number]
== END 2016-12-24 22:35 | DRG 637 ==
LOC: ER 11:16 → MSI 14:18
PROVIDERS: ADMIT Internal Medicine; ATTEND Internal Medicine
DX: E11.65 Type 2 diabetes mellitus with hyperglycemia (principal); K72.00 Acute and subacute hepatic failure without coma; E44.1 Mild protein-calorie malnutrition; R45.851 Suicidal ideations; N39.0 Urinary tract infection, site not specified; E87.1 Hypo-osmolality and hyponatremia; Z68.41 Body mass index [BMI] 40.0-44.9, adult; K70.30 Alcoholic cirrhosis of liver without ascites; E66.01 Morbid (severe) obesity due to excess calories; F32.9 Major depressive disorder, single episode, unspecified; F10.10 Alcohol abuse, uncomplicated; I10 Essential (primary) hypertension; E78.5 Hyperlipidemia, unspecified; K80.80 Other cholelithiasis without obstruction
CPT/HCPCS: 36415-UA; 70450-TC; 71010-TC; 71250-TC; 76700-TC; 80048-TC; 80053-TC; 80076-TC; 80307; 81001-TC; 82105-90; 82140-TC; 82150-TC; 82948-90; 83036-90; 83690-TC; 85025-TC; 85610-TC; 85730-TC; 90779; 93005; 94640; 94760; 97530; J1815; J1956; J2060; J3411; J3475; J7030; J7613; X3904; X6226; X6598; Z7610